=== PATIENT | female | born 1950 | race Caucasian/White ===

== ENCOUNTER 2018-07-28 02:54 | Emergency (ER) | payer OTHER ==
[2018-07-28 05:20] LABS: Absolute Lymphocytes (CBC) 1.2 K/uL (0.7-4.9); Absolute Monocytes 0.4 K/uL (0.1-1.3); Absolute Neutrophil 3.6 K/uL (1.8-8.0); Basophils % 0.6 % (0-1.3); Eosinophils % 5.3 % (0-4.4); Hematocrit 37.8 % (36.0-45.0); Lymphocytes % 21.2 % (15.3-44.8); MPV 9.3 fL (7.6-11.3); Monocytes % 7.6 % (3.3-12.3); RBC Red Blood Cell Count 4.14 M/uL (3.86-4.86)
[2018-07-28 05:34] LABS: Albumin 3.4 g/dL (3.4-5.0); Bilirubin Direct 0.1 mg/dL (0-0.2); Bilirubin Total 0.3 mg/dL (0.2-1.0); Magnesium 2.1 mg/dL (1.8-2.4); Potassium 4.1 mmol/L (3.5-5.1); Protein, Total 6.8 g/dL (6.4-8.2); Troponin (Emerg Dept Use Only) 0.09 ng/mL (0.0-0.045)
[2018-07-28] MEDS ORDERED: PANTOPRAZOLE 40MG TABLET PO ONE (06:52)
--- NOTE | 2018-07-28 07:30 | ER ---
Nurse's Notes [facility] Name: Zuyl Hill Age: 67 yrs Sex: Female : 1950 Arrival Date: 07/28/2018 Time: 02:55 Bed 15 Private MD: Diagnosis: Chest pain, unspecified;Elevated troponin Presentation: 07/28 02:50 Presenting complaint: EMS states: Pt reports having epigastric pain that is the same jb4 pain that was felt with a previous heart attack. 02:50 Transition of care: patient was not received from another setting of care. Onset of jb4 symptoms was July 28, 2018. Risk Assessment: Do you want to hurt yourself or someone else? Patient reports no desire to harm self or others. Initial Sepsis Screen: Does the patient meet any 2 criteria? No. Patient's initial sepsis screen is negative. Does the patient have a suspected source of infection? No. Patient's initial sepsis screen is negative. Care prior to arrival: Medication(s) given: ASA, 81 mg, x 4, zofran 4 mg. 02:50 Method Of Arrival: EMS: [facility] jb4 02:50 Acuity: ISIDRA 3 jb4 Triage Assessment: 02:50 General: Appears in no apparent distress. comfortable, Behavior is calm, cooperative, jb4 appropriate for age. Pain: Complains of pain in epigastric area Pain does not radiate. Pain currently is 0 out of 10 on a pain scale. at worst was 6 out of 10 on a pain scale. Quality of pain is described as aching, Pain began suddenly. EENT: No signs and/or symptoms were reported regarding the EENT system. Neuro: Level of Consciousness is awake, alert, obeys commands, Oriented to person, place, time, situation. Cardiovascular: Patient's skin is warm and dry. Respiratory: Airway is patent Respiratory effort is even, unlabored, Respiratory pattern is regular, symmetrical. GI: No signs and/or symptoms were reported involving the gastrointestinal system. : No signs and/or symptoms were reported regarding the genitourinary system. Derm: Skin is intact, Skin is pink, warm \T\ dry. Musculoskeletal: Circulation, motion, and sensation intact. Historical: - Allergies: 02:50 No Known Allergies; jb4 - Home Meds: 02:50 Plavix Oral [Active]; atorvastatin oral oral [Active]; Metoprolol Tartrate Oral jb4 [Active]; Aspirin Oral [Active]; estrogen [Active]; - PMHx: 02:50 Myocardial infarction; jb4 - PSHx: 02:50 Heart stents; jb4 - Immunization history:: Adult Immunizations up to date. - Social history:: Smoking status: Patient/guardian denies using tobacco, Patient uses alcohol, on a daily basis. - Ebola Screening: : No symptoms or risks identified at this time. Screenin:50 Abuse screen: Denies threats or abuse. Nutritional screening: No deficits noted. jb4 Tuberculosis screening: No symptoms or risk factors identified. Fall Risk None identified. Assessment: 02:50 General: see triage assessment.. jb4 04:00 Reassessment: Patient appears in no apparent distress at this time. Patient and/or jb4 family updated on plan of care and expected duration. Pain level reassessed. Patient is alert, oriented x 3, equal unlabored respirations, skin warm/dry/pink. 05:00 Reassessment: Patient appears in no apparent distress at this time. Patient and/or jb4 family updated on plan of care and expected duration. Pain level reassessed. Patient is alert, oriented x 3, equal unlabored respirations, skin warm/dry/pink. 06:30 Reassessment: Patient appears in no apparent distress at this time. Patient and/or jb4 family updated on plan of care and expected duration. Pain level reassessed. Patient is alert, oriented x 3, equal unlabored respirations, skin warm/dry/pink. Dr. Mercedes at the bedside. 07:03 General: Appears in no apparent distress. comfortable, Behavior is calm, cooperative. rb1 Pain: Denies pain. Neuro: Level of Consciousness is awake, alert, obeys commands, Oriented to person, place, time, situation. Cardiovascular: Capillary refill < 3 seconds is brisk in bilateral fingers. Respiratory: Airway is patent Respiratory effort is even, unlabored, Respiratory pattern is regular, symmetrical. GI: No signs and/or symptoms were reported involving the gastrointestinal system. : No signs and/or symptoms were reported regarding the genitourinary system. Derm: Skin is pink, warm \T\ dry. 07:30 Reassessment: Called report to Vesna Soler RN at [facility]. Information from the [facility]AR rb1 was given. All questions asked and answered. 08:00 Reassessment: Patient appears in no apparent distress at this time. No changes from rb1 previously documented assessment. at bedside. Waiting for EMS to transport pt. 08:40 Reassessment: Patient appears in no apparent distress at this time. Patient and/or rb1 family updated on plan of care and expected duration. Pain level reassessed. Patient is alert, oriented x 3, equal unlabored respirations, skin warm/dry/pink. Gave report to EMS. Patient denies pain at this time. Vital Signs: 02:50 BP 125 / 63; Pulse 73; Resp 16; Temp 98.6(O); Pulse Ox 98% on R/A; Weight 65.77 kg (R); jb4 Height 5 ft. 4 in. (162.56 cm) (R); Pain 0/10; 04:35 BP 115 / 56; Pulse 99; Resp 16; Pulse Ox 100% on R/A; ag4 05:00 BP 113 / 60; Pulse 68; Resp 16; Pulse Ox 100% on R/A; jb4 06:15 BP 127 / 76; Pulse 71; Resp 16; Pulse Ox 100% on R/A; jb4 07:00 BP 107 / 46; Pulse 67; Resp 17; Pulse Ox 99% on R/A; Pain 0/10; rb1 08:00 BP 123 / 54; Pulse 71; Resp 16; Pulse Ox 100% on R/A; Pain 0/10; rb1 08:40 BP 120 / 47; Pulse 71; Resp 15; Pulse Ox 100% on R/A; Pain 0/10; rb1 02:50 Body Mass Index 24.89 (65.77 kg, 162.56 cm) jb4 ED Course: 02:50 Arm band placed on left wrist. jb4 02:50 Patient has correct armband on for positive identification. Placed in gown. Bed in low jb4 position. Call light in reach. Side rails up X 1. environmental monitoring technician on. Pulse ox on. NIBP on. 02:55 Patient arrived in ED. al2 02:58 Arvind Zavala MD is Attending Physician. gs 03:00 Esteban Hanson, RN is Primary Nurse. jb4 03:02 Triage completed. jb4 03:29 XRAY Chest (1 view) In Process Unspecified. EDMS 07:00 Report given to LLOYD Yin. jb4 07:30 Attending Physician role handed off by Arvind Zavala MD rn 07:30 Bernardo Ortega MD is Attending Physician. rn 08:44 No provider procedures requiring assistance completed. Patient transferred, IV remains rb1 in place. Administered Medications: 06:47 Drug: ProTONIX 40 mg Route: PO; jb4 07:15 Follow up: Response: No adverse reaction rb1 Outcome: 07:30 ER care complete, transfer ordered by . rn 08:44 Transferred by ground EMS to [facility], Transfer form completed. rb1 08:44 Condition: stable 08:44 Instructed on the need for transfer. 08:45 Patient left the ED. rb1 Signatures: Dispatcher [employer] EDDE Bernardo Ortega MD MD rn Barber, Rebecca, RN RN rb1 Esteban Hanson RN RN jb4 Arvind Zavala MD MD gs Love, Fede Cotter 4
--- NOTE | 2018-07-28 07:31 | EDPHYS ---
Physician Documentation [facility] Name: Zuly Hill Age: 67 yrs Sex: Female : 1950 Arrival Date: 07/28/2018 Time: 02:55 Bed 15 Private MD: ED Physician Bernardo Ortega HPI: 07/28 06:15 This 67 yrs old Female presents to ER via EMS with complaints of chest pain, gs epigastric . 06:15 The patient or guardian reports chest pain that is located primarily in the epigastric gs area. Onset: acutely. Associated signs and symptoms: Pertinent positives: diaphoresis, shortness of breath. The chest pain is described as a heaviness. Duration: The patient or guardian reports a single episode, that is now resolved. Modifying factors: The symptoms are alleviated by nothing. the symptoms are aggravated by nothing. Severity of pain: At its worst the pain was severe in the emergency department the pain has resolved. The patient has experienced a previous episode, and the symptoms today are exactly the same, mi. Historical: - Allergies: 02:50 No Known Allergies; jb4 - Home Meds: 02:50 Plavix Oral [Active]; atorvastatin oral oral [Active]; Metoprolol Tartrate Oral jb4 [Active]; Aspirin Oral [Active]; estrogen [Active]; - PMHx: 02:50 Myocardial infarction; jb4 - PSHx: 02:50 Heart stents; jb4 - Immunization history:: Adult Immunizations up to date. - Social history:: Smoking status: Patient/guardian denies using tobacco, Patient uses alcohol, on a daily basis. - Ebola Screening: : No symptoms or risks identified at this time. ROS: 06:15 All other systems are negative. gs Exam: 06:15 Head/Face: Normocephalic, atraumatic. Eyes: Pupils equal round and reactive to light, gs extra-ocular motions intact. Lids and lashes normal. Conjunctiva and sclera are non-icteric and not injected. Cornea within normal limits. Periorbital areas with no swelling, redness, or edema. ENT: Nares patent. No nasal discharge, no septal abnormalities noted. Tympanic membranes are normal and external auditory canals are clear. Oropharynx with no redness, swelling, or masses, exudates, or evidence of obstruction, uvula midline. Mucous membranes moist. Neck: Trachea midline, no thyromegaly or masses palpated, and no cervical lymphadenopathy. Supple, full range of motion without nuchal rigidity, or vertebral point tenderness. No Meningismus. Chest/axilla: Normal chest wall appearance and motion. Nontender with no deformity. No lesions are appreciated. Cardiovascular: Regular rate and rhythm with a normal S1 and S2. No gallops, murmurs, or rubs. Normal PMI, no JVD. No pulse deficits. Respiratory: Lungs have equal breath sounds bilaterally, clear to auscultation and percussion. No rales, rhonchi or wheezes noted. No increased work of breathing, no retractions or nasal flaring. Abdomen/GI: Soft, non-tender, with normal bowel sounds. No distension or tympany. No guarding or rebound. No evidence of tenderness throughout. Back: No spinal tenderness. No costovertebral tenderness. Full range of motion. Skin: Warm, dry with normal turgor. Normal color with no rashes, no lesions, and no evidence of cellulitis. MS/ Extremity: Pulses equal, no cyanosis. Neurovascular intact. Full, normal range of motion. Neuro: Awake and alert, GCS 15, oriented to person, place, time, and situation. Cranial nerves II-XII grossly intact. Motor strength 5/5 in all extremities. Sensory grossly intact. Cerebellar exam normal. Normal gait. 06:15 Constitutional: The patient appears alert, awake, diaphoretic. 06:15 ECG was reviewed by the Attending Physician. Vital Signs: 02:50 BP 125 / 63; Pulse 73; Resp 16; Temp 98.6(O); Pulse Ox 98% on R/A; Weight 65.77 kg (R); jb4 Height 5 ft. 4 in. (162.56 cm) (R); Pain 0/10; 04:35 BP 115 / 56; Pulse 99; Resp 16; Pulse Ox 100% on R/A; ag4 05:00 BP 113 / 60; Pulse 68; Resp 16; Pulse Ox 100% on R/A; jb4 06:15 BP 127 / 76; Pulse 71; Resp 16; Pulse Ox 100% on R/A; jb4 07:00 BP 107 / 46; Pulse 67; Resp 17; Pulse Ox 99% on R/A; Pain 0/10; rb1 08:00 BP 123 / 54; Pulse 71; Resp 16; Pulse Ox 100% on R/A; Pain 0/10; rb1 08:40 BP 120 / 47; Pulse 71; Resp 15; Pulse Ox 100% on R/A; Pain 0/10; rb1 02:50 Body Mass Index 24.89 (65.77 kg, 162.56 cm) jb4 MDM: 03:32 Patient medically screened. 06:36 Differential diagnosis: abnormal EKG, acute myocardial infarction, gastroesophageal gs reflux disease (GERD). Data reviewed: vital signs, nurses notes. 07:21 Transition of care: Care assumed from Arvind Zavala MD. ED course: Patient signed out rn to me by Dr. Zavala. Plan told to me was that patient with chest pain, initial troponin elevated, he consulted Dr. Guo who believes due to stent pain, Dr. Guo discussed case with Dr. Zavala and recommended discharge home and not transfer. Dr. Zavala ordered repeat troponin, told me plan is to pursue transfer if troponin comes back higher. Patient does not want to be transferred. Plan per Dr. Zavala is to dc home if troponin same or decreasing. . 07:29 ED course: Troponin increasing, spoke with patient and family, will transfer. . rn 07/28 03:08 Order name: Basic Metabolic Panel; Complete Time: 07:20 07/28 03:08 Order name: CBC with Diff; Complete Time: 05:26 07/28 03:08 Order name: LFT's; Complete Time: 07:20 07/28 03:08 Order name: Magnesium; Complete Time: 07:20 07/28 03:08 Order name: NT PRO-BNP; Complete Time: 07:20 07/28 03:08 Order name: Troponin (emerg Dept Use Only); Complete Time: 07:20 07/28 03:08 Order name: XRAY Chest (1 view) 07/28 03:08 Order name: EKG; Complete Time: 03:08 07/28 03:08 Order name: Cardiac monitoring; Complete Time: 03:23 07/28 06:21 Order name: Lipase; Complete Time: 07:20 EDMS 07/28 06:39 Order name: Troponin (emerg Dept Use Only); Complete Time: 07:23 07/28 03:08 Order name: EKG - Nurse/Tech; Complete Time: 03: 07/28 03:08 Order name: IV Saline Lock; Complete Time: : 07/28 03:08 Order name: Labs collected and sent; Complete Time: 07/28 03:08 Order name: O2 Per Protocol; Complete Time: 07/28 03:08 Order name: O2 Sat Monitoring; Complete Time: 03:23 gs EC:41 Rate is 66 beats/min. Rhythm is regular. RI interval is normal. QRS interval is normal. QT interval is normal. T waves are Inverted in leads V3, V4, V5. Clinical impression: NSR w/ Non-specific ST/T Changes. Interpreted by me. Administered Medications: 06:47 Drug: ProTONIX 40 mg Route: PO; jb4 07:15 Follow up: Response: No adverse reaction rb1 Disposition: 07/28/18 07:30 Transfer ordered to [facility]. Diagnosis are Chest pain, unspecified, Elevated troponin. - Reason for transfer: Higher level of care. - Accepting physician is Dr. Howard. - Condition is Stable. - Problem is new. - Symptoms are unchanged. Signatures: Dispatcher [employer] [facility] Bernardo Ortega MD MD rn Barber, Rebecca RN RN rb1 Esteban Hanson RN RN jb4 Arvind Zavala MD MD Corrections: (The following items were deleted from the chart) 06:20 06:15 LIPASE+C.LAB.BRZ ordered. [facility] EDGA 08:45 07:30 07/28/2018 07:30 Transfer ordered to [facility]. Diagnosis is rb1 Chest pain, unspecified; Elevated troponin. Reason for transfer: Higher level of care. Accepting physician is Dr. Howard. Condition is Stable. Problem is new. Symptoms are unchanged. rn
--- NOTE | 2018-07-28 10:57 | RAD REPORT ---
EXAM DESCRIPTION: [facility] Single View07/28/2018 3:29 am CLINICAL HISTORY: Chest pain COMPARISON: none FINDINGS: The lungs appear clear of acute infiltrate. The heart is normal size IMPRESSION: No acute abnormalities displayed
--- NOTE | 2018-07-29 07:58 | EKG ---
Test Date: 2018-07-28 Test Time: 02:59:13 Grinder Machine Setter: RR MEASUREMENT RESULTS: Intervals: Rate: 66 WA: 150 QRSD: 80 QT: 390 QTc: 408 [place]: P: 85 WA: 150 QRS: 79 T: 82 INTERPRETIVE STATEMENTS: Normal sinus rhythm T wave abnormality, consider anterolateral ischemia Abnormal ECG No previous ECG available for comparison Electronically Signed On 07-29-18 07:54:34 RN CALL CENTER by Jeffrey Guo
== END 2018-07-28 08:45 | disposition short-term general hospital (02) ==
LOC: ER 02:54
DX: R79.89 Other specified abnormal findings of blood chemistry (principal); I25.2 Old myocardial infarction; Z79.01 Long term (current) use of anticoagulants; Z79.82 Long term (current) use of aspirin; Z95.818 Presence of other cardiac implants and grafts
CPT/HCPCS: 71045; 80048; 80076; 83690; 83735; 83880; 84484; 85025; 93005; 99285

== ENCOUNTER 2018-08-22 21:24 | Observation (INO) | payer OTHER ==
--- OUTSIDE RECORDS SUMMARY | 2018-08-22 21:26 | XMS REPORT ---
:1950 Author Organization [employer] Care Team Providers Name Role Phone Hubert Stark Provider Role Unavailable Allergies No Known Allergies Problems Problem Type Condition Code Onset Dates Condition Status Problem Hypertrophy of nasal turbinates J34.3 Active Problem Sneezing R06.7 Active Problem Sinusitis - Chronic J32.9 Active Problem Chronic maxillary sinusitis J32.0 Active Problem Sinusitis - ACUTE >10 days J01.90 Active Problem Edema of larynx J38.4 Active Problem Allergic rhinitis due to pollen J30.1 Active Problem Hypersensitivity pneumonitis due to J67.8 Active other organic dusts Problem Chronic rhinitis J31.0 Active Problem Nasal Airway Obstruction R0 Active Problem Cough R05 Active Problem Allergic rhinitis J30.9 Active Problem Deviated nasal septum J34.2 Active Problem Other specified diseases of jaws M27.8 Active Problem Sinusitis - Chronic J32.8 Active Medications Medication Code Code Instructions Start End Status Dosage System Date Date Azelastine HCl [facility] [id number] MCG/SPRAY Aug 14, Active 1 puff in Nasally Twice a 2018 each day nostril Results No Known Results Summary Purpose [employer] Submission
--- OUTSIDE RECORDS SUMMARY | 2018-08-22 21:26 | XMS REPORT ---
[...] Problem Sinusitis - Chronic J32.8 Active Medications No Known Medications Results No Known Results Summary Purpose [employer] Submission
--- OUTSIDE RECORDS SUMMARY | 2018-08-22 21:26 | XMS REPORT ---
[...] Medications Results No Known Results Summary Purpose [employer] Submission
--- OUTSIDE RECORDS SUMMARY | 2018-08-22 21:26 | XMS REPORT | Clinical Summary ---
:1950 Author Organization [facility] Address [address] [place] [address] Care Team Providers Name Role Phone Unavailable Primary Care Provider Unavailable Allergies Not on File Medications Not on file Active Problems Not on file Encounters Date Type Specialty Care Team Description 09/25/2017 Orders Only Lab Hubert Stark MD Other chronic sinusitis ( Primary Dx) after 08/21/2017 Social History Tobacco Use Types Packs/Day Years Used Date Never Assessed Sex Assigned at Date Recorded Not on file Job Start Date Occupation Industry Not on file Not on file Not on file Travel History Travel Start Travel End No recent travel history available. Last Filed Vital Signs Not on file Plan of Treatment Not on file Procedures Procedure Name Priority Date/Time Associated Diagnosis Comments SINUS CULTURE + Routine 09/25/2017 3:35 PM Other chronic Results for this GRAM STAIN CDT sinusitis procedure are in the results section. after 08/21/2017 Results Sinus Culture + Gram Stain (09/25/2017 3:35 PM CDT) Result PSEUDOMONAS AERUGINOSA (A) [facility] Gram Stain Result <1+ White blood cells seen [facility] Gram Stain Result No organisms seen [facility] Specimen Other Organism Antibiotic Method Susceptibility Pseudomonas aeruginosa Amikacin <=8: Susceptible Pseudomonas aeruginosa Aztreonam 8: Susceptible Pseudomonas aeruginosa Cefepime <=4: Susceptible Pseudomonas aeruginosa Ceftazidime 2: Susceptible Pseudomonas aeruginosa Ciprofloxacin <=0.5: Susceptible Pseudomonas aeruginosa Doripenem 2: Susceptible Pseudomonas aeruginosa Gentamicin <=2: Susceptible Pseudomonas aeruginosa Imipenem 8: Resistant Pseudomonas aeruginosa Levofloxacin <=1: Susceptible Pseudomonas aeruginosa Meropenem 4: Resistant Pseudomonas aeruginosa Piperacillin <=16: Susceptible Pseudomonas aeruginosa Piperacillin + Tazobactam <=8: Susceptible Pseudomonas aeruginosa Tobramycin <=2: Susceptible Performing Organization Address City/State/[facility] Phone Number [facility] [address] [place] [address] CENTER after 08/21/2017 Insurance Payer Benefit Plan / Group Subscriber ID Type Phone Address MEDICARE MEDICARE A B xxxxxxxxxx Medicare (Home) [place] [address]
--- OUTSIDE RECORDS SUMMARY | 2018-08-22 21:26 | XMS REPORT | Clinical Summary ---
:1950 Author Organization [facility] Address [address] [place] [address] Care Team Providers Name Role Phone Sherry Jo MD Primary Care Provider Allergies Active Allergy Reactions Severity Noted Date Comments Penicillins Shortness Of Breath High 05/31/2017 SOB Soy Other (See Comments) Low 07/28/2018 unknown Medications Medication Sig Dispensed Refills Start Date End Date Status estrogens, conjugated, Take 0.3 mg by 0 Active (PREMARIN) 0.3 MG mouth daily. tablet Take daily for 21 days then do not take for 7 days. progesterone Take 100 mg by 0 Active (PROMETRIUM) 100 MG mouth daily. capsule Take 1 tab, first 10 days of the the month metoprolol succinate XL Take 12.5 mg by 0 Active (TOPROL-XL) 25 mg 24 hr mouth daily. tablet atorvastatin (LIPITOR) Take 40 mg by 0 Active 40 MG tablet mouth nightly. clopidogrel (PLAVIX) 75 Take 75 mg by 0 Active mg tablet mouth daily. cholecalciferol, Take 1,000 0 Active vitamin D3, (VITAMIN Units by mouth D3) 1,000 unit capsule daily. cyanocobalamin (VITAMIN Take 1,000 mcg 0 Active B-12) 1000 MCG tablet by mouth daily. acetaminophen (TYLENOL) Take 325 mg by 0 Active 325 MG tablet mouth every 6 (six) hours as needed for fever. aspirin 325 MG tablet Take 325 mg by 0 Active mouth daily. Patient unsure of ASA dosing ALPRAZolam (XANAX) 0.25 Take 0.25 mg by 0 Active MG tablet mouth nightly as needed for anxiety (patient takes 1/2). nitroglycerin Place 1 tablet 90 tablet 12 07/29/2018 08/28/2018 Active (NITROSTAT) 0.4 MG SL (0.4 mg total) tablet under the tongue every 5 (five) minutes as needed for chest pain for up to 30 days. Active Problems Problem Noted Date Chest pain 07/28/2018 Encounters Date Type Specialty Care Team Description 07/29/2018 Surgery Procedural Darnell Tariq Selective coronary Cardiology MD [place] angiography [86286 (CPT)] 07/28/2018 - Hospital Encounter Cardiology Darnell Tariq Other chest pain 07/29/2018 MD [place] (Primary Dx) Caroline Cagle MD 07/28/2018 Intake Access N/A after 08/21/2017 Family History Medical History Relation Name Comments Cancer Father Coronary artery disease Maternal Grandfather Relation Name Status Comments Father Maternal Grandfather Mother essential tremors Social History Tobacco Use Types Packs/Day Years Used Date Never Smoker Smokeless Tobacco: Never Used Alcohol Use Drinks/Week oz/Week Comments Yes 1 Glasses of wine 0.6 glass of wine every day Sex Assigned at Date Recorded Not on file Job Start Date Occupation Industry Not on file Not on file Not on file Travel History Travel Start Travel End No recent travel history available. Last Filed Vital Signs Vital Sign Reading Time Taken Blood Pressure 120/59 07/29/2018 12:01 PM [employer] Pulse 63 07/29/2018 12:01 PM [employer] Temperature 36.1 C (96.9 F) 07/29/2018 9:19 AM [employer]ENTIST Respiratory Rate 12 07/29/2018 12:01 PM [employer]IST Oxygen Saturation 97% 07/29/2018 12:01 PM [employer]IST Inhaled Oxygen Concentration - - Weight 64.7 kg (142 lb 9.6 oz) 07/28/2018 10:17 AM [employer]IST Height 162.6 cm (5' 4") 07/28/2018 10:17 AM [employer]AL[employer] SCIENTIST Body Mass Index 24.48 07/28/2018 10:17 AM [employer]AL[employer] CONTROL SCIENTIST Plan of Treatment Health Maintenance Due Date Last Done Comments BREAST CANCER SCREENING 2000 COLON CANCER SCREENING 2000 SHINGLES VACCINES (#1) 2000 65+ PNEUMOCOCCAL VACCINE (1 of 2 - PCV13) 12/07/2015 PNEUMOCOCCAL POLYSACCHARIDE VACCINE AGE 65 AND OVER 12/07/2015 INFLUENZA VACCINE 01/30/2018 Procedures Procedure Name Priority Date/Time Associated Comments Diagnosis ECHOCARDIOGRAM 2D Routine 07/29/2018 3:02 Results for this COMPLETE W MMODE PM [employer]IST procedure are in SPECTRAL COLOR DOPPLER the results (61238) section. CV LEFT HEART CATH Routine 07/29/2018 10:11 Results for this AM [employer]IST procedure are in the results section. CV SELECTIVE CORONARY Routine 07/29/2018 10:11 Results for this ANGIOGRAPHY AM [employer]IST procedure are in the results section. ESTIMATED GFR Routine 07/29/2018 3:28 Results for this AM [employer]IST procedure are in the results section. BASIC METABOLIC PANEL Routine 07/29/2018 3:28 Results for this AM [employer] procedure are in the results section. CBC HEMOGRAM Routine 07/29/2018 2:40 Results for this AM [employer] procedure are in the results section. TROPONIN Timed 07/28/2018 4:27 Results for this PM [employer]IST procedure are in the results section. B NATRIURETIC PEPTIDE STAT 07/28/2018 11:44 Results for this AM [employer]IST procedure are in the results section. HC COMPLETE BLD COUNT STAT 07/28/2018 11:44 Results for this W/AUTO DIFF AM [employer]ENTIST procedure are in the results section. ECG 12-LEAD STAT 07/28/2018 10:58 Results for this AM [employer]IST procedure are in the results section. TROPONIN STAT 07/28/2018 10:43 Results for this AM [employer] SCIENTIST procedure are in the results section. ESTIMATED GFR Routine 07/28/2018 10:41 Results for this AM [employer]IST procedure are in the results section. PHOSPHORUS LEVEL Routine 07/28/2018 10:41 Results for this AM [employer] procedure are in the results section. MAGNESIUM LEVEL Routine 07/28/2018 10:41 Results for this AM [employer]IST procedure are in the results section. COMPREHENSIVE METABOLIC Routine 07/28/2018 10:41 Results for this PANEL AM [employer]OL SCIENTIST procedure are in the results section. after 08/21/2017 Results Echocardiogram complete w contrast and 3D if needed (07/29/2018 3:02 PM QUALITY CONTROL SCIENTIST) Narrative Performed At [facility] Echocardiography Report [id number]Name:ZULY SANDOVAL Faviola.ID:[id number] .Date: 07/29/2018 Refer.MD:DARNELL TARIQ MD Exam Time: 2:21:00 PMStudy Type:Routine Echo Height:64inWeight: 142lb BSA: 1.69 m2 DOBAge:1950,67Y Sex: FEMALEBP:120/59 HR:63 bpmSonogrphr: Linda Sim, KARIN Pat. Stat.:Inpatient Room:[facility] Study Status:Final Echo Event ID:[id number] Order ID:[id number] Reason for Study:Chest Pain Procedures:2D Echo, Colorflow Doppler Race:C SUMMARY: LV size is normal. Estimated EF is 60-64%. Overall wall motion is normal. LV filling pressure is normal. FINDINGS: LV: LV size is normal. LV EF is normal. Overall wall motion is normal.Estimated EF is 60-64%. RV: RV size is normal. RV systolic function is normal. LA: LA size is normal. RA: RA size is normal. AO: Aortic root diameter is normal. CARLA: No pericardial effusion. AV: No structural AV abnormalities noted. MV: No structural MV abnormalities noted. PV: Pulmonic valve not well seen. TV: No structural TV abnormalities noted. Mild tricuspid regurgitation Mendez: LV relaxation is reduced, appropriate for age. LV filling pressureis normal. Other:Insufficient TR jet to estimate PA systolic pressure. MEASUREMENTS: 2D Parasternal [place] LVIDd4.3 cmIndex2.5 cm/m Ao An2 cm LVIDs2.3 cmAo Rtd 2.6 cm Index1.5 cm/m LV%fs 46.5 % LV Mass 72.9 g(87-129) IVSd 0.6 cmLVM Index 43.1 g/m2 LVPWd0.6 cmRWT0.3 LA Ds2.3 cmLVOT 1.9 cm LA Sng Plane LA Area 16.2 cm2(8.8-23.4) LA Vol42.6 ml Index25.2 ml/m LA LngAx 5.2 cm Signed 07/29/2018 06:32 PM Eugene Marino M.D. Procedure Note Interface, Radiology Results In - 07/29/2018 6:32 PM [facility] Echocardiography Report [id number] [place] [address] Pat.Name: ZULY SANDOVAL Pat.ID: [id number] .Date: 07/29/2018 Refer.MD: DARNELL TARIQ MD Exam Time: 2:21:00 PM Study Type:Routine Echo Height: 64in Weight: 142lb BSA: 1.69 m2 Age: 6 1950,67Y Sex: FEMALE BP: 120/59 HR: 63 bpm Sonogrphr: KARIN Hinds Pat. Stat.:Inpatient Room: [facility] Study Status:Final Echo Event ID:[id number] Order ID: [id number] Reason for Study:Chest Pain Procedures:2D Echo, Colorflow Doppler Race: C SUMMARY: LV size is normal. Estimated EF is 60-64%. Overall wall motion is normal. LV filling pressure is normal. FINDINGS: LV: LV size is normal. LV EF is normal. Overall wall motion is normal. Estimated EF is 60-64%. RV: RV size is normal. RV systolic function is normal. LA: LA size is normal. RA: RA size is normal. AO: Aortic root diameter is normal. CARLA: No pericardial effusion. AV: No structural AV abnormalities noted. MV: No structural MV abnormalities noted. PV: Pulmonic valve not well seen. TV: No structural TV abnormalities noted. Mild tricuspid regurgitation Mendez: LV relaxation is reduced, appropriate for age. LV filling pressure is normal. Other: Insufficient TR jet to estimate PA systolic pressure. MEASUREMENTS: 2D Parasternal [place] LVIDd 4.3 cm Index 2.5 cm/m Ao An 2 cm LVIDs 2.3 cm Ao Rtd 2.6 cm Index 1.5 cm/m LV%fs 46.5 % LV Mass 72.9 g (87-129) IVSd 0.6 cm LVM Index 43.1 g/m2 LVPWd 0.6 cm RWT 0.3 LA Ds 2.3 cm LVOT 1.9 cm LA Sng Plane LA Area 16.2 cm2 (8.8-23.4) LA Vol 42.6 ml Index 25.2 ml/m LA LngAx 5.2 cm Signed 07/29/2018 06:32 PM Eugene Marino M.D. 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 Estimated GFR 52 (A) mL/min/1.73 m2 [facility] Comment: HOSPITAL CatergoryUnitsInterpretation G1 >=90 Normal or high G2 60-89Mildly decreased [id number] to moderately decreased N2k64-78Ksvbbchock to severely decreased G4 15-29Severely decreased G5 <15Kidney failure The eGFR was calculated using the Chronic Kidney Disease Epidemiology Collaboration (CKD-EPI) equation. Interpretation is based on recommendations of the National Kidney Foundation-Kidney Disease Outcomes Quality Initiative (NKF-KDOQI) published in 2014. Specimen Plasma specimen Performing Organization Address City/[facility] Phone Number [facility] DEPARTMENT OF PATHOLOGY AND [address] [place] [address] Basic metabolic panel (07/29/2018 3:28 AM QUALITY CONTROL SCIENTIST) Sodium 136 135 - 148 mEq/L [facility] Potassium 4.1 3.5 - 5.0 mEq/L [facility] Chloride 101 98 - 112 mEq/L [facility] CO2 26 24 - 31 mEq/L [facility] Anion gap 9@ANIO 7 - 15 mEq/L [facility] BUN 16 8 - 23 mg/dL [facility] Creatinine 1.10 (H) 0.50 - 0.90 mg/dL [facility] Glucose 103 (H) 65 - 99 mg/dL [facility] Calcium 9.0 8.8 - 10.2 mg/dL [facility] Specimen Plasma specimen Performing Organization Address City/[facility] Phone Number [facility] DEPARTMENT OF PATHOLOGY AND [address] [place] [phone] [place] [phone] CBC hemogram (07/29/2018 2:40 AM QUALITY CONTROL SCIENTIST) WBC 4.77 4.50 - 11.00 k/uL [facility] RBC 4.00 (L) 4.20 - 5.50 m/uL [facility] HGB 12.1 12.0 - 16.0 g/dL [facility] HCT 36.9 (L) 37.0 - 47.0 % [facility] MCV 92.3 82.0 - 100.0 fL [facility] MCH 30.3 27.0 - 34.0 pg [facility] MCHC 32.8 31.0 - 37.0 g/dL [facility] RDW - SD 42.5 37.0 - 55.0 fL [facility] MPV 10.8 8.8 - 13.2 fL [facility] Platelet count 177 150 - 400 k/uL [facility] Nucleated RBC 0.00 /100 WBC [facility] Specimen Blood Performing Organization Address City/State/Zipcode Phone Number [facility] DEPARTMENT OF PATHOLOGY AND [address] [place] [address] Troponin (07/28/2018 4:27 PM QUALITY CONTROL SCIENTIST)Only the most recent of2 resultswithin the time period is included. Troponin <0.30 0.00 - 0.30 ng/mL [facility] Comment: 0.30 - 1.49 ng/mlMay indicate increased risk of acute coronary syndrome. >=1.5 ng/mlConsistent with acute myocardial infarction. The diagnostic value of a single normal or non-diagnostic result is questionable.Serial samples at 2-6 hour intervals are required to rule out acute myocardial injury. Specimen Plasma specimen Performing Organization Address City/[facility] Phone Number [facility] DEPARTMENT OF PATHOLOGY AND [address] [place] [address] CBC with platelet and differential (07/28/2018 11:44 AM QUALITY CONTROL SCIENTIST) WBC 4.67 4.50 - 11.00 k/uL [facility] RBC 4.17 (L) 4.20 - 5.50 m/uL [facility] HGB 12.8 12.0 - 16.0 g/dL [facility] HCT 39.2 37.0 - 47.0 % [facility] MCV 94.0 82.0 - 100.0 fL [facility] MCH 30.7 27.0 - 34.0 pg [facility] MCHC 32.7 31.0 - 37.0 g/dL [facility] RDW - SD 42.5 37.0 - 55.0 fL [facility] MPV 10.8 8.8 - 13.2 fL [facility] Platelet count 201 150 - 400 k/uL [facility] Nucleated RBC 0.00 /100 WBC [facility] Neutrophils 73.3 (H) 39.0 - 69.0 % [facility] Lymphocytes 20.1 (L) 25.0 - 45.0 % [facility] Monocytes 5.1 0.0 - 10.0 % [facility] Eosinophils 0.9 0.0 - 5.0 % [facility] Basophils 0.4 0.0 - 1.0 % [facility] Immature granulocytes 0.2Comment: "Immature 0.0 - 1.0 % [facility]" [facility] (promyelocytes, myelocytes, metamyelocytes) Specimen Blood Performing Organization Address City/[facility] Phone Number [facility] DEPARTMENT OF PATHOLOGY AND [address] [place] [phone] [place] [phone] B natriuretic peptide (07/28/2018 11:44 AM QUALITY CONTROL SCIENTIST) BNP 109 (H) 0 - 100 pg/mL [facility] Specimen Blood Performing Organization Address [facility] Phone Number [facility] DEPARTMENT OF PATHOLOGY AND [address] [place], [place] [phone] [address] [address] ECG 12 lead (07/28/2018 10:58 AM QUALITY CONTROL SCIENTIST) Ventricular rate 66 [facility] Atrial rate 66 [facility] MI interval 142 [facility] QRSD interval 76 [facility] QT interval 388 [facility] QTC interval 406 [facility] P axis 1 80 [facility] QRS axis 1 62 [facility] T wave axis 58 [facility] EKG impression Normal sinus rhythm-Possible Left atrial [facility] enlargement-T wave abnormality, consider anterolateral ischemia-Abnormal ECG-No previous ECGs available- Narrative Performed At Performing Organization Address City/[facility] Phone Number [facility] [address] [place] [phone] Phosphorus level (07/28/2018 10:41 AM QUALITY CONTROL SCIENTIST) Phosphorus 3.2 2.4 - 4.5 mg/dL [facility] Specimen Plasma specimen Performing Organization Address City/[facility]/Zipcode Phone Number [facility] DEPARTMENT OF PATHOLOGY AND [address] [place] [phone] [address] Magnesium level (07/28/2018 10:41 AM QUALITY CONTROL SCIENTIST) Magnesium 2.1 1.6 - 2.4 mg/dL [facility] Specimen Plasma specimen Performing Organization Address [facility] Phone Number [facility] DEPARTMENT OF PATHOLOGY AND [address] [place] [phone] [address] Comprehensive metabolic panel (07/28/2018 10:41 AM QUALITY CONTROL SCIENTIST) Sodium 144 135 - 148 mEq/L [facility] Potassium 4.8 3.5 - 5.0 mEq/L [facility] Chloride 105 98 - 112 mEq/L [facility] CO2 26 24 - 31 mEq/L [facility] Anion gap 13@ANIO 7 - 15 mEq/L [facility] BUN 16 8 - 23 mg/dL [facility] Creatinine 1.07 (H) 0.50 - 0.90 mg/dL [facility] Glucose 114 (H) 65 - 99 mg/dL [facility] Calcium 9.4 8.8 - 10.2 mg/dL [facility] Protein 6.8 6.3 - 8.3 g/dL [facility] Comment: HOSPITAL 4.6-7.0 g/dL 1 week 4.4-7.6 g/dL 7 months-1year5.1-7.3 g/dL 1-2 years5.6-7.5 g/dL >3 years6.0-8.0 g/dL 18-150 6.3-8.3 g/dL Albumin 3.8 3.5 - 5.0 g/dL [facility] A/G ratio 1.3 0.7 - 3.8 [facility] Alkaline phosphatase 66 35 - 104 U/L [facility] AST 33 10 - 35 U/L [facility] ALT 37 5 - 50 U/L [facility] Total bilirubin 0.4 0.0 - 1.2 mg/dL [facility] Specimen Plasma specimen Performing Organization Address [facility] Phone Number [facility] DEPARTMENT OF PATHOLOGY AND [address] [place] [address] [place] [address] after 08/21/2017 Insurance Payer Benefit Plan / Group Subscriber ID Type Phone Address MEDICARE MEDICARE PART A AND B xxxxxxxxxx Medicare [place], [place] [employer] [place] [employer] xxxxxxxxxxxx Commercial Advance Directives Patient has advance care planning documents on file. For more information, please contact:[address] [address]
--- OUTSIDE RECORDS SUMMARY | 2018-08-22 21:27 | XMS REPORT ---
:1950 Author Organization [employer] Care Team Providers Name Role Phone Hubert Stark Provider Role Unavailable Allergies, Adverse Reactions, Alerts Substance Reaction Event Type Penicillin Info Not Available Drug Allergy Problems Problem Type Condition Code Onset Dates [...] Active Problem Nasal Airway Obstruction R0 Active Assessment Sinusitis - Chronic J32.8 Active Assessment Chronic maxillary sinusitis J32.0 Active Problem Cough R05 Active Problem Allergic rhinitis J30.9 Active Assessment Allergic rhinitis J30.9 Active Problem Deviated nasal septum J34.2 Active Problem Other specified diseases of jaws M27.8 Active Problem Sinusitis - Chronic J32.8 Active Medications Medication Code Code Instructions Start End Status Dosage System Date Date Medrol (Isidoro) [facility] 07933293778 4 MG Orally Mar 27, Active as 2017 directed Mucinex [facility] [address]-11 Active not defined Astelin [facility] 33680400395 137 MCG/SPRAY Jun 21 Active 1 spray in Nasally Twice a 2015 each day nostril Biaxin XL [facility] 25862338984 500 MG Orally August Active 1 tablet Twice a day 2017 Simply Saline [facility] [address] Active not defined Progesterone [facility] [address]-74 Active not defined Benadryl ND 0 Active not defined Zantac [facility] [address]-64 Active not defined EpiPen 2-Isidoro [facility] 27939386692 0.3 MG/0.3ML August Active as Injection as 2017 directed needed Mariela [facility] 0 Active not defined Ventolin HFA [facility] [address]-26 Active 2 puffs as needed Fluticasone ND 56364850919 50 MCG/ACT May 30, Active 1 spray in Propionate Nasally Twice a 2016 each day nostril Azelastine HCl [facility] 29366179539 137 MCG/SPRAY Aug 14, Active 1 puff in Nasally Twice a 2017 each day nostril Symbicort [facility] [address]-05 Active 2 puffs as needed Gentamicin NDC 0 Active not defined Diflucan [facility] 55508999410 150 MG Orally AugustNovember 20, Active 2 tablets Once a week 2017 Unknown NDC 0 Active not defined Flonase [facility] 52636575354 50 MCG/ACT Jun 21, Active 1 spray in Nasally Twice a 2015 each day nostril Medrol (Isidoro) [facility] 82470813439 4 MG Orally August Active as 2017 directed Premarin [facility] [address]-93 Active not defined Results No Known Results Summary Purpose [employer] Submission
--- OUTSIDE RECORDS SUMMARY | 2018-08-22 21:27 | XMS REPORT ---
:1950 Author Organization [employer] Care Team Providers Name Role Phone Hubert Stark Provider Role Unavailable Allergies No Known Allergies Problems Problem Type Condition Code Onset Dates Condition Status Problem Hypersensitivity pneumonitis due to J67.8 Active other organic dusts Problem Nasal Airway Obstruction R0 Active Problem Allergic rhinitis due to pollen J30.1 Active Problem Postnasal drip R09.82 Active Assessment Allergic rhinitis J30.89 Active Problem Polyp of nasal cavity J33.0 Active Problem Nasal airway obstruction J34.89 Active Problem Sinusitis - ACUTE >10 days J01.90 Active Problem Chronic rhinitis J31.0 Active Problem Edema of larynx J38.4 Active Problem Chronic maxillary sinusitis J32.0 Active Problem Other specified diseases of jaws M27.8 Active Problem Cough R05 Active Assessment Allergic rhinitis due to animal J30.81 Active (cat) (dog) hair and dander Assessment Allergic rhinitis due to pollen J30.1 Active Problem Sinusitis - Chronic J32.8 Active Problem Hypertrophy of nasal turbinates J34.3 Active Problem Allergic rhinitis J30.9 Active Problem Sinusitis - Chronic J32.9 Active Problem Deviated nasal septum J34.2 Active Problem Sneezing R06.7 Active Medications No Known Medications Results No Known Results Summary Purpose [employer] Submission
--- OUTSIDE RECORDS SUMMARY | 2018-08-22 21:27 | XMS REPORT ---
:1950 Author Organization e[employer]Works Care Team Providers Name Role Phone Hubert Stark Provider Role Unavailable Allergies, Adverse Reactions, Alerts Substance Reaction Event Type Cipro Difficulty breathing Drug Allergy Penicillin Info Not Available Drug Allergy Problems Problem Type Condition Code Onset Dates Condition Status Problem Hypersensitivity pneumonitis due to J67.8 Active other organic dusts Problem Nasal Airway Obstruction R0 Active Problem Allergic rhinitis due to pollen J30.1 Active Problem Postnasal drip R09.82 Active Assessment Allergic rhinitis J30.9 Active Problem Polyp of nasal cavity J33.0 Active Assessment Postnasal drip R09.82 Active Assessment Chronic maxillary sinusitis J32.0 Active Problem Nasal airway obstruction J34.89 Active Problem Sinusitis - ACUTE >10 days J01.90 Active Problem Chronic rhinitis J31.0 Active Problem Edema of larynx J38.4 Active Problem Chronic maxillary sinusitis J32.0 Active Problem Other specified diseases of jaws M27.8 Active Problem Cough R05 Active Assessment Nasal airway obstruction J34.89 Active Assessment Sinusitis - Chronic J32.8 Active Problem Sinusitis - Chronic J32.8 Active Problem Hypertrophy of nasal turbinates J34.3 Active Problem Allergic rhinitis J30.9 Active Problem Sinusitis - Chronic J32.9 Active Assessment Polyp of nasal cavity J33.0 Active Problem Deviated nasal septum J34.2 Active Problem Sneezing R06.7 Active Medications Medication Code Code Instructions Start End Status Dosage System Date Date Medrol (Isidoro) [facility] 96054048271 4 MG Orally August Active as 2017 directed Biaxin XL ND 19757102160 500 MG Orally November 15October Active 1 tablet Once a day BID 2017 Auvi-Q ND 07026443398 0.3 MG/0.3ML August Active as Injection as 2017 directed needed Premarin [facility] [address]-75 Active not defined Fluticasone ND 52501763402 50 MCG/ACT May 30, Active 1 spray in Propionate Nasally Twice a 2017 each day nostril Benadryl ND 0 Active not defined Simply Saline [facility] [address] Active not defined Diflucan ND 65258775677 150 MG Orally August Active 2 tablets Once a week 2017 Medrol (Isidoro) [facility] 99336187028 4 MG Orally November 15, Active as 2018 directed Xyzal [facility] [address]-26 Active not defined Ciprofloxacin ND 57388542959 750 MG Orally August Active 1 tablet HCl twice a day 2017 Symbicort [facility] [address]-32 Active 2 puffs as needed Gentamicin NDC 0 Active not defined Mariela NDC 0 Active not defined Unknown NDC 0 Active not defined Zithromax Z-Isidoro [facility] 17976244990 250 MG Orally November 15, Active 2 tablets Once a day 2017 on the first day, then 1 tablet daily for 4 days EpiPen 2-Isidoro [facility] 92687609353 0.3 MG/0.3ML August Active as Injection as 2017 directed needed Zantac [facility] [address]-54 Active not defined Mucinex [facility] [address]-88 Active not defined Progesterone [facility] [address]-67 Active not defined Azelastine HCl [facility] 05572406520 137 MCG/SPRAY Aug 14, Active 1 puff in Nasally Twice a 2018 each day nostril Ventolin HFA [facility] [address]-17 Active 2 puffs as needed Results No Known Results Summary Purpose eClinicalWorks Submission
--- OUTSIDE RECORDS SUMMARY | 2018-08-22 21:27 | XMS REPORT ---
[...] Start End Status Dosage System Date Date Ciprofloxacin HCl [facility] 75028546565 750 MG Orally August Active 1 tablet twice a day 2017 Results No Known Results Summary Purpose eClinicalWorks Submission
--- OUTSIDE RECORDS SUMMARY | 2018-08-22 21:27 | XMS REPORT ---
[...] Medications Medication Code Code Instructions Start End Date Status Dosage System Date Auvi-Q [facility] 19825767768 0.3 MG/0.3ML September 26, Active as directed Injection as 2018 needed Results No Known Results Summary Purpose eClinicalWorks Submission
--- OUTSIDE RECORDS SUMMARY | 2018-08-22 21:27 | XMS REPORT ---
:1950 Author Organization [facility] Address [address] [place] [address] [place] [id number] Care Team Providers Name Role Phone TIM GUERIN Unavailable Unavailable Problems This patient has no known problems. Allergies, Adverse Reactions, Alerts This patient has no known allergies or adverse reactions. Medications This patient has no known medications. Results Test Description Test Time Test Comments Text Results Atomic Results Result Comments SINUS CULTURE + GRAM STAIN 2017-09-27 12:07:00 Test Item Value Reference Range Comments CULTURE (BEAKER) (test PSEUDOMONAS 1+ Pseudomonas lkbh=2348) AERUGINOSA aeruginosa Amikacin (test code=1) Susceptible 0-16 , Resistant <0 or >16 Aztreonam (test Susceptible 0-8 , code=32) Resistant <0 or >8 Cefepime (test code=51) Susceptible 0-8 , Resistant <0 or >8 Ceftazidime (test Susceptible 0-8 , code=27) Resistant <0 or >8 Ciprofloxacin (test Susceptible 0-1 , code=7) Resistant <0 or >1 Doripenem (test Susceptible 0-2 , ouyt=438) Resistant <0 or >2 Gentamicin (test Susceptible 0-4 , code=18) Resistant <0 or >4 Imipenem (test code=19) Susceptible 0-2 , Resistant <0 or >2 Levofloxacin (test Susceptible 0-2 , code=22) Resistant <0 or >2 Meropenem (test Susceptible 0-2 , code=34) Resistant <0 or >2 Piperacillin (test Susceptible 0-16 , code=24) Resistant <0 or >16 Piperacillin + Susceptible 0-16 , Tazobactam (test Resistant <0 or >16 code=29) Tobramycin (test Susceptible 0-4 , code=25) Resistant <0 or >4 GRAM STAIN RESULT <1+ White blood cells (BEAKER) (test seen alzg=0294) GRAM STAIN RESULT No organisms seen (BEAKER) (test cwel=[id number])
--- OUTSIDE RECORDS SUMMARY | 2018-08-22 21:27 | XMS REPORT ---
:1950 Author Organization eClinicalWorks Care Team Providers Name Role Phone Hubert Stark Provider Role Unavailable Allergies, Adverse Reactions, Alerts Substance Reaction Event Type Cipro Difficulty breathing Drug Allergy Penicillin Info Not Available Drug Allergy Problems Problem Type Condition Code Onset Dates Condition Status Problem Sinusitis - Chronic J32.9 Active Problem Hypersensitivity pneumonitis due to J67.8 Active other organic dusts Problem Sneezing R06.7 Active Problem Edema of larynx J38.4 Active Problem Chronic maxillary sinusitis J32.0 Active Problem Polyp of nasal cavity J33.0 Active Problem Nasal Airway Obstruction R0 Active Problem Allergic rhinitis due to pollen J30.1 Active Problem Sinusitis - ACUTE >10 days J01.90 Active Problem Chronic rhinitis J31.0 Active Assessment Allergic rhinitis J30.9 Active Assessment Sinusitis - Chronic J32.8 Active Assessment Polyp of nasal cavity J33.0 Active Assessment Chronic maxillary sinusitis J32.0 Active Problem Allergic rhinitis J30.9 Active Problem Deviated nasal septum J34.2 Active Problem Other specified diseases of jaws M27.8 Active Problem Sinusitis - Chronic J32.8 Active Problem Cough R05 Active Problem Hypertrophy of nasal turbinates J34.3 Active Medications Medication Code Code Instructions Start End Status Dosage System Date Date Premarin [facility] [address]-82 Active not defined Ciprofloxacin [facility] 84195228251 750 MG Orally August Active 1 tablet HCl twice a day 2017 Symbicort [facility] [address]-62 Active 2 puffs as needed Simply Saline [facility] [address] Active not defined Auvi-Q [facility] 94312692786 0.3 MG/0.3ML August Active as Injection as 2017 directed needed Gentamicin ND 0 Active not defined EpiPen 2-Isidoro [facility] 54471718574 0.3 MG/0.3ML August Active as Injection as 2017 directed needed Mucinex [facility] [address]-00 Active not defined Benadryl ND 0 Active not defined Progesterone [facility] [address]-88 Active not defined Unknown NDC 0 Active not defined Diflucan [facility] 15175288361 150 MG Orally August Active 2 tablets Once a week 2017 Medrol (Isidoro) [facility] 48690166429 4 MG Orally August Active as 2017 directed Mariela ND 0 Active not defined Ventolin HFA [facility] [address]-23 Active 2 puffs as needed Azelastine HCl [facility] 63568377216 137 MCG/SPRAY Aug 14, Active 1 puff in Nasally Twice a 2017 each day nostril Fluticasone [facility] 70031491503 50 MCG/ACT May 30, Active 1 spray in Propionate Nasally Twice a 2016 each day nostril Zantac [facility] [address]-33 Active not defined Results No Known Results Summary Purpose eClinicalWorks Submission
--- OUTSIDE RECORDS SUMMARY | 2018-08-22 21:27 | XMS REPORT ---
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
--- OUTSIDE RECORDS SUMMARY | 2018-08-22 21:28 | XMS REPORT ---
[...] Active Problem Postnasal drip R09.82 Active Assessment Other allergic rhinitis J30.89 Active Problem Polyp of nasal [...]
--- OUTSIDE RECORDS SUMMARY | 2018-08-22 21:28 | XMS REPORT ---
[...] J30.1 Active Problem Postnasal drip R09.82 Active Problem Polyp of nasal cavity J33.0 Active Problem Nasal airway obstruction J34.89 Active Problem Sinusitis - ACUTE >10 days J01.90 Active Problem Chronic rhinitis J31.0 Active Problem Edema of larynx J38.4 Active Problem Chronic maxillary sinusitis J32.0 Active Problem Other specified diseases of jaws M27.8 Active Problem Cough R05 Active Problem Sinusitis - Chronic J32.8 Active Problem Hypertrophy of nasal turbinates J34.3 Active Problem Allergic rhinitis J30.9 Active Problem Sinusitis - Chronic J32.9 Active Problem Deviated nasal septum J34.2 Active Problem Sneezing R06.7 Active Medications No Known Medications Results No Known Results Summary Purpose eClinicalWorks Submission
--- OUTSIDE RECORDS SUMMARY | 2018-08-22 21:28 | XMS REPORT ---
:1950 Author Organization eClinicalWorks Care Team Providers Name Role Phone Hubert Stakr Provider Role Unavailable Allergies No Known Allergies [...]
--- OUTSIDE RECORDS SUMMARY | 2018-08-22 21:29 | XMS REPORT ---
[...] Status Dosage System Date Date Azelastine HCl [facility] 63946207285 137 MCG/SPRAY Aug 14, Active 1 puff in Nasally Twice a 2018 each day nostril Results No Known Results Summary Purpose eClinicalWorks Submission
--- OUTSIDE RECORDS SUMMARY | 2018-08-22 21:30 | XMS REPORT ---
:1950 Author Organization eClinicalWorks Care Team Providers Name Role Phone Hubert Stark Provider Role Unavailable Allergies No Known Allergies Problems Problem Type Condition Code Onset Dates Condition Status Problem Allergic rhinitis due to pollen J30.1 Active Problem Chronic rhinitis J31.0 Active Problem Nasal Airway Obstruction R0 Active Problem Nasal airway obstruction J34.89 Active Assessment Allergic rhinitis due to animal J30.81 Active (cat) (dog) hair and dander Problem Postnasal drip R09.82 Active Problem Mild intermittent asthma, J45.20 Active uncomplicated Problem Chronic maxillary sinusitis J32.0 Active Problem Sinusitis - ACUTE >10 days, PCN, no J01.[address] Problem Polyp of nasal cavity J33.0 Active Problem Edema of larynx J38.4 Active Problem Cough R05 Active Problem Allergic rhinitis J30.9 Active Assessment Allergic rhinitis due to pollen J30.1 Active Problem Other specified diseases of jaws M27.8 Active Problem Hypertrophy of nasal turbinates J34.3 Active Problem Sinusitis - Chronic J32.9 Active Problem Deviated nasal septum J34.2 Active Problem Sneezing R06.7 Active Problem Sinusitis - Chronic J32.8 Active Problem Hypersensitivity pneumonitis due to J67.8 Active other organic dusts Medications No Known Medications Results No Known Results Summary Purpose eClinicalWorks Submission
--- OUTSIDE RECORDS SUMMARY | 2018-08-22 21:30 | XMS REPORT ---
:1950 Author Organization eClinicalWorks Care Team Providers Name Role Phone Hubert Stark Provider Role Unavailable Allergies No Known Allergies Problems Problem Type Condition Code Onset Dates Condition Status Problem Sneezing R06.7 Active Problem Chronic rhinitis J31.0 Active Problem Nasal Airway Obstruction R0 Active Problem Postnasal drip R09.82 Active Assessment Allergic rhinitis due to pollen J30.1 Active Problem Nasal airway obstruction J34.89 Active Assessment Allergic rhinitis due to animal J30.81 Active (cat) (dog) hair and dander Assessment Allergic rhinitis J30.89 Active Problem Mild intermittent asthma, J45.20 Active uncomplicated Problem Chronic maxillary sinusitis J32.0 Active Problem Edema of larynx J38.4 Active Problem Polyp of nasal cavity J33.0 Active Problem Sinusitis - ACUTE >10 days, PCN, no J01.[address] Problem Sinusitis - Chronic J32.8 Active Problem Cough R05 Active Problem Other specified diseases of jaws M27.8 Active Problem Sinusitis - Chronic J32.9 Active Problem Hypertrophy of nasal turbinates J34.3 Active Problem Deviated nasal septum J34.2 Active Problem Hypersensitivity pneumonitis due to J67.8 Active other organic dusts Problem Allergic rhinitis J30.9 Active Problem Allergic rhinitis due to pollen J30.1 Active Medications No Known Medications Results No Known Results Summary Purpose eClinicalWorks Submission
--- OUTSIDE RECORDS SUMMARY | 2018-08-22 21:30 | XMS REPORT ---
:1950 [facility] Team Providers Name Role Phone Hubert [...] Active (cat) (dog) hair and dander Assessment Other allergic rhinitis J30.89 Active Problem Mild intermittent asthma, [...] rhinitis due to pollen J30.1 Active Medications Medication Code Code Instructions Start End Status Dosage System Date Date Fluticasone [facility] 91814284486 50 MCG/ACT May 30, Active 1 spray in Propionate Nasally Twice a 2017 each day nostril Simply Saline [facility] [address] Active not defined Ventolin HFA [facility] [address]-78 Active 2 puffs as needed Premarin [facility] [address]-44 Active not defined Progesterone [facility] [address]-08 Active not defined Gentamicin NDC 0 Active not defined Symbicort [facility] [address]-89 Active 2 puffs as needed Xyzal NDC 0 Active not defined Azelastine HCl [facility] 94436908594 137 MCG/SPRAY Feb 13, Active 1 puff in Nasally Twice a 2018 each day nostril Results No Known Results Summary Purpose eClinicalWorks Submission
--- OUTSIDE RECORDS SUMMARY | 2018-08-22 21:30 | XMS REPORT ---
[...] Problem Nasal airway obstruction J34.89 Active Problem Mild intermittent asthma, J45.20 Active [...] End Status Dosage System Date Date Premarin [facility] [address]-33 Active not defined Simply Saline [facility] [address] Active not defined Gentamicin ND 0 Active not defined Fluticasone [facility] 61707885994 50 MCG/ACT May 30, Active 1 spray in Propionate Nasally Twice a 2016 each day nostril Azelastine HCl [facility] 80120420271 137 MCG/SPRAY Aug 14, Active 1 puff in Nasally Twice a 2017 each day nostril Symbicort [facility] [address]-88 Active 2 puffs as needed Ventolin HFA [facility] [address]-30 Active 2 puffs as needed Xyzal NDC 0 Active not defined Progesterone [facility] [address]-67 Active not defined Results No Known Results Summary Purpose eClinicalWorks Submission
--- OUTSIDE RECORDS SUMMARY | 2018-08-22 21:30 | XMS REPORT ---
:1950 Author Organization eClinicalWorks Care Team Providers Name Role Phone Danilo Kunz Provider Role Unavailable Allergies, Adverse Reactions, Alerts Substance Reaction Event Type Cipro Difficulty breathing Drug Allergy Penicillin Info Not Available Drug Allergy Problems Problem Type Condition Code Onset Dates Condition Status Problem Allergic rhinitis due to pollen J30.1 Active Problem Chronic rhinitis J31.0 Active Problem Nasal Airway Obstruction R0 Active Problem Nasal airway obstruction J34.89 Active Assessment Mild intermittent asthma, J45.20 Active uncomplicated Problem Postnasal drip R09.82 Active Problem Mild intermittent asthma, J45.20 Active uncomplicated Problem Chronic maxillary sinusitis J32.0 Active Problem Sinusitis - ACUTE >10 days J01.90 Active Problem Polyp of nasal cavity J33.0 Active Problem Edema of larynx J38.4 Active Problem Cough R05 Active Problem Allergic rhinitis J30.9 Active Assessment Allergic rhinitis J30.9 Active Problem Other specified diseases of jaws M27.8 Active Problem Hypertrophy of nasal turbinates J34.3 Active Problem Sinusitis - Chronic J32.9 Active Problem Deviated nasal septum J34.2 Active Problem Sneezing R06.7 Active Problem Sinusitis - Chronic J32.8 Active Problem Hypersensitivity pneumonitis due to J67.8 Active other organic dusts Medications Medication Code Code Instructions Start End Status Dosage System Date Date Premarin [facility] [address]-92 Active not defined Auvi-Q [facility] 47702133554 0.3 MG/0.3ML August Active as Injection as 2017 directed needed Benadryl NDC 0 Active not defined Zantac [facility] [address]-39 Active not defined Xyzal NDC 0 Active not defined Unknown NDC 0 Active not defined Mucinex [facility] [address]-27 Active not defined Medrol (Isidoro) [facility] 99472505531 4 MG Orally November 15, Active as 2018 directed Ventolin HFA [facility] [address]-31 Active 2 [place] [address]-17 Active 2 puffs as needed Azelastine HCl [facility] 09112754968 137 MCG/SPRAY Aug 14, Active 1 puff in Nasally Twice a 2017 each day nostril Zithromax Z-Isidoro [facility] 62591309857 250 MG Orally November 15, Active 2 tablets Once a day 2018 on the first day, then 1 tablet daily for 4 days Simply Saline [facility] [address] Active not defined Gentamicin ND 0 Active not defined Fluticasone [facility] 94033302187 50 MCG/ACT May 30, Active 1 spray in Propionate Nasally Twice a 2016 each day nostril Progesterone [facility] [address]-45 Active not defined Mariela ND 0 Active not defined Results No Known Results Summary Purpose eClinicalWorks Submission
--- OUTSIDE RECORDS SUMMARY | 2018-08-22 21:30 | XMS REPORT ---
:1950 [facility] Care Team Providers Name Role [...] Start End Status Dosage System Date Date Progesterone [facility] [address]-92 Active not defined Symbicort [facility] [address]-20 Active 2 puffs as needed Simply Saline [facility] [address] Active not defined Azelastine HCl [facility] 31041678489 137 MCG/SPRAY Aug 14, Active 1 puff in Nasally Twice a 2017 each day nostril Fluticasone [facility] 38956526401 50 MCG/ACT May 30, Active 1 spray in Propionate Nasally Twice a 2016 each day nostril Gentamicin NDC 0 Active not defined Xyzal ND 0 Active not defined Ventolin HFA [facility] [address]-65 Active 2 puffs as needed Premarin [facility] [address]-29 Active not defined Results No Known Results Summary Purpose eClinicalWorks Submission
--- OUTSIDE RECORDS SUMMARY | 2018-08-22 21:30 | XMS REPORT ---
:1950 Author Organization eClinicalWorks Care Team Providers Name Role Phone Hubert Stark Provider Role Unavailable Allergies No Known Allergies Problems Problem Type Condition Code Onset Dates Condition Status Problem Sneezing R06.7 Active Problem Chronic rhinitis J31.0 Active Problem Nasal Airway Obstruction R0 Active Problem Postnasal drip R09.82 Active Problem Nasal airway obstruction J34.89 Active [...]
[2018-08-22 22:02] LABS: Absolute Lymphocytes (CBC) 1.1 K/uL (0.7-4.9); Absolute Monocytes 0.3 K/uL (0.1-1.3); Absolute Neutrophil 2.8 K/uL (1.8-8.0); Eosinophils % 5.5 % (0-4.4); Hematocrit 35.6 % (36.0-45.0); Lymphocytes % 23.6 % (15.3-44.8); MPV 9.1 fL (7.6-11.3); Monocytes % 7.6 % (3.3-12.3); RBC Red Blood Cell Count 3.85 M/uL (3.86-4.86)
[2018-08-22 22:04] LABS: Protime INR 1.03
[2018-08-22 22:21] LABS: ALT/SGPT 90 U/L (12-78); AST/SGOT 100 U/L (15-37); Albumin 3.8 g/dL (3.4-5.0); Alkaline Phosphatase 104 U/L (45-117); BUN Blood Urea Nitrogen 21 mg/dL (7-18); Bicarbonate 31 mmol/L (21-32); Bilirubin Direct 0.1 mg/dL (0-0.2); Bilirubin Total 0.3 mg/dL (0.2-1.0); Glucose Level 109 mg/dL (74-106); Magnesium 2.1 mg/dL (1.8-2.4); NT PRO-BNP 386 pg/mL (<125); Protein, Total 6.9 g/dL (6.4-8.2); Sodium Level 142 mmol/L (136-145); Troponin (Emerg Dept Use Only) < 0.02 ng/mL (0.0-0.045)
[2018-08-22] MEDS ORDERED: NA CHLORIDE 0.9% 500 ML ONE (23:53)
--- NOTE | 2018-08-23 00:09 | ER ---
Nurse's Notes [facility] Name: Zuly Hill Age: 67 yrs Sex: Female : 1950 Arrival Date: 08/22/2018 Time: 21:25 Bed 16 Private MD: Diagnosis: Syncope and collapse;Chest pain, unspecified Presentation: 08/22 21:34 Presenting complaint: Patient states: Pt reports chest pain that began this morning, pt ea states "there is a dull ache going to my left arm". Pt husbands reports pt had a heart attack on Jul 18 2018. Transition of care: patient was not received from another setting of care. Onset of symptoms was August 22, 2018. Risk Assessment: Do you want to hurt yourself or someone else? Patient reports no desire to harm self or others. Initial Sepsis Screen: Does the patient meet any 2 criteria? No. Patient's initial sepsis screen is negative. Does the patient have a suspected source of infection? No. Patient's initial sepsis screen is negative. Care prior to arrival: None. 21:34 Method Of Arrival: Wheelchair ea 21:34 Acuity: ISIDRA 3 ea Triage Assessment: 21:42 General: Appears in no apparent distress. Behavior is calm, cooperative. Pain: Denies ls4 pain. Cardiovascular: Reports chest pain, since this morning but the pain has since subsided. pt spouse states that she passed out on tv chair an hour ago. Respiratory: Airway is patent Trachea midline Respiratory effort is even, unlabored, Respiratory pattern is regular. GI: Abdomen is non-distended, Bowel sounds present X 4 quads. Abd is soft and non tender X 4 quads. Historical: - Allergies: 21:38 No Known Allergies; ea - Home Meds: 21:38 Plavix Oral [Active]; Metoprolol Tartrate Oral [Active]; atorvastatin Oral [Active]; ea Aspirin Oral [Active]; - PMHx: 21:38 Myocardial infarction; ea - PSHx: 21:38 Heart stents; ea - Immunization history:: Adult Immunizations up to date. - Social history:: Smoking status: Patient/guardian denies using tobacco. - Ebola Screening: : No symptoms or risks identified at this time. Screenin:45 Abuse screen: Denies threats or abuse. Denies injuries from another. Nutritional ls4 screening: No deficits noted. Tuberculosis screening: No symptoms or risk factors identified. Fall Risk None identified. Assessment: 22:16 Also complains of no other symptoms. Pain: Denies pain. radiated to right arm when pain ls4 occurred earlier Pain began gradually. Cardiovascular: Reports chest pain, fatigue, Denies diaphoresis, lightheadedness, nausea, palpitations, shortness of breath, syncope, vomiting. Respiratory: Airway is patent Trachea midline Respiratory effort is even, unlabored, Breath sounds are clear bilaterally. 23:40 Reassessment: Patient and/or family updated on plan of care and expected duration. Pain ea level reassessed. Patient is alert, oriented x 3, equal unlabored respirations, skin warm/dry/pink. 08/23 00:00 Reassessment: Patient and/or family updated on plan of care and expected duration. Pain ea level reassessed. Patient is alert, oriented x 3, equal unlabored respirations, skin warm/dry/pink. Patient states feeling better. Patient states symptoms have improved. 01:15 Reassessment: Report given to receiving nurse on fourth floor. ea 01:18 Reassessment: Patient and/or family updated on plan of care and expected duration. Pain ea level reassessed. Patient is alert, oriented x 3, equal unlabored respirations, skin warm/dry/pink. Pt admitted to fourth floor, taken via wheelchair per tech, pt tolerating well. Patient states feeling better. Patient states symptoms have improved. Vital Signs: 08/22 21:38 BP 157 / 69; Pulse 75; Resp 18; Temp 97.6(O); Pulse Ox 95% on R/A; Weight 64.41 kg; ea Height 5 ft. 4 in. (162.56 cm); 23:40 BP 100 / 53; Pulse 68; Resp 18; Pulse Ox 98% ; ea 08/23 00:30 BP 119 / 62; Pulse 72; Resp 18; Pulse Ox 97% ; ea 08/22 21:38 Body Mass Index 24.37 (64.41 kg, 162.56 cm) ea ED Course: 08/22 21:25 Patient arrived in ED. am2 21:30 Radha Jha, LLOYD is Primary Nurse. ls4 21:30 Mook Oneil PA is PHCP. cp 21:30 Arvind Zavala MD is Attending Physician. cp 21:36 Triage completed. ea 21:38 Arm band placed on right wrist. Patient placed in an exam room, on a stretcher, on ea vehicle monitor technician, on pulse oximetry. 21:45 Patient has correct armband on for positive identification. Bed in low position. Call ls4 light in reach. Side rails up X 1. quality assurance monitor final on. Pulse ox on. NIBP on. Warm blanket given. 21:45 No provider procedures requiring assistance completed. Inserted saline lock: 20 gauge ls4 in left antecubital area, using aseptic technique. Patient maintains SpO2 saturation greater than 95% on room air. 21:57 LFT's Sent. ls4 21:57 Magnesium Sent. ls4 21:57 NT PRO-BNP Sent. ls4 21:57 PT-INR Sent. ls4 21:57 Troponin (emerg Dept Use Only) Sent. ls4 21:57 XRAY Chest (1 view) Sent. ls4 22:[address] nj 22:15 Basic Metabolic Panel Sent. ls4 22:16 CBC with Diff Sent. ls4 22:20 CT completed. Patient tolerated procedure well. Patient moved back from [facility] 08/23 00:05 Katya Figueredo MD is Hospitalizing Provider. cp 01:07 Patient admitted, IV remains in place. ea Administered Medications: 08/22 23:46 Drug: NS 0.9% 500 ml Route: IV; Rate: bolus; Site: left antecubital; ea 08/23 00:59 Follow up: Response: No adverse reaction; IV Status: Completed infusion; IV Intake: ea 500ml Intake: 00:59 IV: 500ml; Total: 500ml. ea Outcome: 00:06 Decision to Hospitalize by Provider. cp 00:52 Instructed on the need for admit. ea 01:15 Admitted to Med/surg accompanied by tech, room 409, Report called to Receiving nurse ea on fourth 01:15 Condition: stable 01:19 Patient left the ED. ea Signatures: Mook Oneil PA PA cp Jordan, Nathan nj Moreno, Amanda am2 McGuire, Victoria [facility] Christal Goldstein RN RN Radha Pelaez RN RN ls4
--- NOTE | 2018-08-23 00:10 | EDPHYS ---
Physician Documentation [facility] Name: Zuly Hill Age: 67 yrs Sex: Female : 1950 Arrival Date: 08/22/2018 Time: 21:25 Bed 16 Private MD: ED Physician Arvind Zavala HPI: 08/22 21:41 This 67 yrs old Female presents to ER via Wheelchair with complaints of Chest cp Pain. 21:41 The patient or guardian reports chest pain that is located primarily in the anterior cp chest wall. 21:41 Onset: this morning. cp 21:41 The pain radiates to the left shoulder. cp 21:41 The chest pain is described as aching, dull. cp 21:41 Duration: The patient or guardian reports multiple episodes, that wax and wane. cp Severity of pain: in the emergency department the pain has resolved and did so just prior to arrival. 21:41 reports patient began having episode of chest pain while seated in chair about cp an hour ago. Patient then passed out for over 1 minute. Historical: - Allergies: 21:38 No Known Allergies; ea - Home Meds: 21:38 Plavix Oral [Active]; Metoprolol Tartrate Oral [Active]; atorvastatin Oral [Active]; ea Aspirin Oral [Active]; - PMHx: 21:38 Myocardial infarction; ea - PSHx: 21:38 Heart stents; ea - Immunization history:: Adult Immunizations up to date. - Social history:: Smoking status: Patient/guardian denies using tobacco. - Ebola Screening: : No symptoms or risks identified at this time. ROS: 21:45 Constitutional: Negative for body aches, chills, fever, poor PO intake. cp 21:45 Eyes: Negative for injury, pain, redness, and discharge. cp 21:45 ENT: Negative for drainage from ear(s), ear pain, sore throat, difficulty swallowing, difficulty handling secretions. 21:45 Neck: Negative for stiffness. 21:45 Cardiovascular: Positive for chest pain, Negative for edema, palpitations. 21:45 Respiratory: Negative for cough, shortness of breath, wheezing. 21:45 Abdomen/GI: Negative for abdominal pain, nausea, vomiting, and diarrhea. 21:45 Skin: Negative for cellulitis, rash. 21:45 Neuro: Positive for syncope, general weakness, Negative for altered mental status, headache. 21:45 All other systems are negative. Exam: 21:51 Constitutional: The patient appears in no acute distress, alert, awake, cp non-diaphoretic, non-toxic, well developed, well nourished. 21:51 Head/Face: Normocephalic, atraumatic. Eyes: Pupils equal round and reactive to light, cp extra-ocular motions intact. Lids and lashes normal. Conjunctiva and sclera are non-icteric and not injected. Cornea within normal limits. Periorbital areas with no swelling, redness, or edema. ENT: Nares patent. No nasal discharge, no septal abnormalities noted. Tympanic membranes are normal and external auditory canals are clear. Oropharynx with no redness, swelling, or masses, exudates, or evidence of obstruction, uvula midline. Mucous membranes moist. Neck: Trachea midline, no thyromegaly or masses palpated, and no cervical lymphadenopathy. Supple, full range of motion without nuchal rigidity, or vertebral point tenderness. No Meningismus. Chest/axilla: Normal chest wall appearance and motion. Nontender with no deformity. No lesions are appreciated. 21:51 Cardiovascular: Rate: normal, Rhythm: regular, Pulses: Pulses are 2+ in right radial artery and left radial artery. Heart sounds: murmur, not appreciated, Edema: is not appreciated, JVD: is not appreciated. 21:51 Respiratory: the patient does not display signs of respiratory distress, Respirations: normal, no use of accessory muscles, no retractions, no splinting, no tachypnea, labored breathing, is not present, Breath sounds: are clear throughout, no decreased breath sounds, no stridor, no wheezing. 21:51 Abdomen/GI: Inspection: abdomen appears normal, Palpation: abdomen is soft and non-tender, in all quadrants, voluntary guarding, is not appreciated, involuntary guarding, is not appreciated. 21:51 Back: pain, is absent, ROM is normal. 21:51 Skin: cellulitis, is not appreciated, no rash present. 21:51 Neuro: Orientation: to person, place \T\ time. Mentation: is normal, Cerebellar function: is grossly normal, Motor: moves all fours, strength is normal, Sensation: is normal. 21:53 ECG was reviewed by the Attending Physician. cp Vital Signs: 21:38 BP 157 / 69; Pulse 75; Resp 18; Temp 97.6(O); Pulse Ox 95% on R/A; Weight 64.41 kg; ea Height 5 ft. 4 in. (162.56 cm); 23:40 BP 100 / 53; Pulse 68; Resp 18; Pulse Ox 98% ; ea 08/23 00:30 BP 119 / 62; Pulse 72; Resp 18; Pulse Ox 97% ; ea 08/22 21:38 Body Mass Index 24.37 (64.41 kg, 162.56 cm) ea MDM: 08/22 21:30 Patient medically screened. cp 22:00 Differential diagnosis: abnormal EKG, acute myocardial infarction, pneumonia, cp pneumothorax, pulmonary embolus, stable angina, thoracic aortic disection, unstable angina. 08/23 00:05 The patient was not given aspirin in the Emergency Department. Patient reports taking cp aspirin within the past 24 hours. 00:05 Data reviewed: vital signs, nurses notes, lab test result(s), EKG, radiologic studies. cp Test interpretation: by ED physician or midlevel provider: ECG, plain radiologic studies. Physician consultation: Katya Figueredo MD was contacted at 23:50, regarding admission, to the telemetry unit. patient's condition. 02 21:42 Order name: Basic Metabolic Panel cp 08/22 21:42 Order name: CBC with Diff cp 02 21:42 Order name: LFT's cp 08/22 21:42 Order name: Magnesium cp 02 21:42 Order name: NT PRO-BNP cp 08/22 21:42 Order name: PT-INR cp 08/22 21:42 Order name: Troponin (emerg Dept Use Only) cp 08/22 22:03 Order name: CBC with Automated Diff; Complete Time: 22:49 EDMS 02 22:50 Interpretation: Normal except: RBC 3.85; HCT 35.6; PLT 150; EOSINOPHIL % 5.5. cp 08/22 22:06 Order name: Protime (+INR); Complete Time: 22:49 EDMS 08/22 22:22 Order name: Basic Metabolic Panel; Complete Time: 22:49 EDMS 08/22 22:50 Interpretation: Normal except: GLUC 109; BUN 21; CRE 1.41; GFR 37. cp 08/22 22:22 Order name: Liver (Hepatic) Function; Complete Time: 22:49 EDMS 08/22 22:50 Interpretation: Normal except: AST 100; ALT 90. cp 08/22 22:22 Order name: Troponin (Emerg Dept Use Only); Complete Time: 22:49 EDMS 08/22 22:50 Interpretation: TROPED < 0.02; Reviewed. cp 08/22 22:22 Order name: NT PRO-BNP; Complete Time: 22:49 EDMS 08/22 23:00 Interpretation: Abnormal: NT PRO-BNP 386. cp 08/22 22:22 Order name: Magnesium; Complete Time: 22:49 EDMS 08/22 21:42 Order name: XRAY Chest (1 view) cp 08/22 21:42 Order name: EKG; Complete Time: 21:43 cp 08/22 21:42 Order name: Cardiac monitoring; Complete Time: 21:46 cp 08/22 21:42 Order name: EKG - Nurse/Tech; Complete Time: 21:46 cp 08/22 21:42 Order name: IV Saline Lock; Complete Time: 21:46 cp 08/22 21:42 Order name: Labs collected and sent; Complete Time: 21:46 cp 08/22 21:42 Order name: O2 Per Protocol; Complete Time: 21:47 cp 08/22 21:42 Order name: O2 Sat Monitoring; Complete Time: 21:47 cp 08/22 21:55 Order name: CT Head Brain wo Cont cp EC/21 21:53 Rate is 73 beats/min. Rhythm is regular. MD interval is normal. QRS interval is normal. cp QT interval is normal. T waves are Inverted in leads V2, V3. Interpreted by me. Reviewed by me. Administered Medications: 23:46 Drug: NS 0.9% 500 ml Route: IV; Rate: bolus; Site: left antecubital; ea 08/23 00:59 Follow up: Response: No adverse reaction; IV Status: Completed infusion; IV Intake: ea 500ml Disposition: 20:40 Co-signature as Attending Physician, Arvind Zavala MD. Disposition: 08/23/18 00:06 Hospitalization ordered by Katya Figueredo for Observation. Preliminary diagnosis are Syncope and collapse, Chest pain, unspecified. - Bed requested for Telemetry/MedSurg (observation). - Status is Observation. ea - Condition is Stable. - Problem is new. - Symptoms have improved. UTI on Admission? No Signatures: Dispatcher [employer] EDMS Leydi Seth RN RN kl Page, Corey, PA PA cp Antunez, Elena, RN RN ea Starr, Gregory, MD MD gs Corrections: (The following items were deleted from the chart) 00:41 00:06 Hospitalization Ordered by Katya Figueredo MD for Observation. Preliminary kl diagnosis is Syncope and collapse; Chest pain, unspecified. Bed requested for Telemetry/MedSurg (observation). Status is Observation. Condition is Stable. Problem is new. Symptoms have improved. UTI on Admission? No. cp 01:19 00:41 08/23/2018 00:06 Hospitalization Ordered by Katya Figueredo MD for Observation. lupillo Preliminary diagnosis is Syncope and collapse; Chest pain, unspecified. Bed requested for Telemetry/MedSurg (observation). Status is Observation. Condition is Stable. Problem is new. Symptoms have improved. UTI on Admission? No. afua
--- NOTE | 2018-08-23 00:47 | P.HP ---
Certification for Inpatient Patient admitted to: Observation With expected LOS: <2 Midnights Practitioner: I am a practitioner with admitting privileges, knowledge of patient current condition, hospital course, and medical plan of care. Services: Services provided to patient in accordance with Admission requirements found in Title 42 Section 412.3 of the Code of Federal Regulations Patient History Date of Service: 08/23/18 Reason for admission: syncope, chest pain History of Present Illness: Ms Hill is a 67 years old woman with history of CAD, about 1 month ago had an acute PA, she was transferred to [facility] and had a stent placement. After the procedure, the patient has had recurrent episodes of chest pain. She had a second cath in [facility] and was told that everything was ok. Today, the patient has had some left arm pain. Subsequently, she was watching TV and suddenly start feeling nauseated, dizziness and then she become unresponsive. Her was witness. The syncopal episode last for about 1 minute. The patient denied palpitations prior the syncope. The patient has history of previous vaso-vagal episodes. Lab work shows normal trop I. EKG without ST-T abnormalities. CT head no acute abnormalities. Home medications list reviewed: Yes - Past Medical/Surgical History -: CAD -: Vaso-vagal episodes -: stent placement - Family History Family History: Reviewed- Non-Contributory - Social History Smoking Status: Never smoker Alcohol use: Yes CD- Drugs: No Caffeine use: Yes Place of Residence: Home Review of Systems 10-point ROS is otherwise unremarkable Physical Examination - Physical Exam General: Alert, In no apparent distress HEENT: Atraumatic, PERRLA, Mucous membr. moist/pink, EOMI, Sclerae nonicteric Neck: Supple, 2+ carotid pulse no bruit, No LAD, Without JVD or thyroid abnormality Respiratory: Clear to auscultation bilaterally, Normal air movement Cardiovascular: Regular rate/rhythm, Normal S1 S2 Gastrointestinal: Normal bowel sounds, No tenderness Musculoskeletal: No tenderness Integumentary: No rashes Neurological: Normal gait, Normal speech, Normal strength at 5/5 x4 extr, Normal tone, Normal affect Lymphatics: No axilla or inguinal lymphadenopathy - Studies Laboratory Data (last 24 hrs) 08/22/18 21:45: PT 12.1, INR 1.03 08/22/18 21:45: WBC 4.5, Hgb 12.0, Hct 35.6 L, Plt Count 150 L 08/22/18 21:45: Sodium 142, Potassium 4.0, BUN 21 H, Creatinine 1.41 H, Glucose 109 H, Magnesium 2.1, Total Bilirubin 0.3, AST 100 H, ALT 90 H, Alkaline Phosphatase 104 Assessment and Plan - Problems (Diagnosis) (1) Syncope Current Visit: Yes Status: Acute Qualifiers: Syncope type: unspecified Qualified Code(s): R55 - Syncope and collapse (2) CAD (coronary artery disease) Current Visit: Yes Status: Acute Qualifiers: Coronary Disease-Associated Artery/Lesion type: [place] artery [place] vs. transplanted heart: [place] heart Associated angina: angina presence unspecified Qualified Code(s): I25.10 - Atherosclerotic heart disease of [place] coronary artery without angina pectoris (3) Left arm pain Current Visit: Yes Status: Acute - Plan The patient will be admitted to the hospital due to syncopal episode. Differential diagnosis include malignant arrhythmia, vaso-vagal episode. Will keep the patient on telemetry, order serial cardiac enzymes, ECHO and cardiology consult. - Advance Directives Does patient have a Living Will: No Does patient have a Durable POA for Healthcare: No - Code Status/Comfort Care Code Status Assessed: Yes Code Status: Full Code
[2018-08-23] MEDS ORDERED: ONDANSETRON 4 MG/2 ML VIAL IV PRN (02:01)
[2018-08-23] MEDS ORDERED: CLOPIDOGREL 75 MG TABLET PO ONE (02:01)
--- NOTE | 2018-08-23 07:06 | EKG ---
Test Date: 2018-08-22 Test Time: 21:37:58 Cna: [id number] MEASUREMENT RESULTS: Intervals: Rate: 73 UT: 138 QRSD: 76 QT: 368 QTc: 405 [place]: P: 80 UT: 138 QRS: 75 T: 74 INTERPRETIVE STATEMENTS: Normal sinus rhythm Nonspecific T wave abnormality Abnormal ECG Compared to ECG 07/28/2018 02:59:13 Possible ischemia no longer present T-wave abnormality still present Electronically Signed On 08-23-18 07:05:57 STEM LEAD FORMER by Braden Wen
--- NOTE | 2018-08-23 07:44 | RAD REPORT ---
EXAM DESCRIPTION: RAD - Chest Single View - 08/22/2018 10:20 pm CLINICAL HISTORY: Syncope, chest pain COMPARISON: July 28 TECHNIQUE: AP portable chest image was obtained 2214 hour . FINDINGS: Interstitial fibrotic pattern is present, worse in each medial lung base. Pattern is not c learly different from comparison. No peripheral mass or consolidation. Failure and volume overload no t suspected. Heart and vasculature are normal. No measurable pleural effusion and no pneumothorax. No acute bony abnormality seen. No acute aortic findings suspected. IMPRESSION: No acute cardiopulmonary process. Chest findings are similar to July 28.
[2018-08-23] MEDS ORDERED: PNEUMOCOCCAL VACCINE 0.5 ML IMVAC ONE (08:00)
[2018-08-23] MEDS ORDERED: TRAZODONE 50 MG TABLET PO PRN (08:46)
[2018-08-23] MEDS ORDERED: NA CHLORIDE 0.9% 250 ML IV ONE (08:53)
[2018-08-23] MEDS ORDERED: FLUTICASONE 50MCG NASAL SPRAY NAS SCH (09:00)
[2018-08-23] MEDS ORDERED: CLOPIDOGREL 75 MG TABLET PO SCH (09:00)
[2018-08-23] MEDS ORDERED: METOPROLOL XL 25 MG TAB PO SCH ×2 (09:00)
[2018-08-23] MEDS ORDERED: ENOXAPARIN 40 MG/0.4 ML SQ SCH (09:00)
[2018-08-23] MEDS ORDERED: ESTROGENS,CONJUGAG 0.3 MG TAB PO SCH (09:00)
[2018-08-23] MEDS ORDERED: ISOSORBIDE MONO SR 30 MG TAB PO SCH (09:00)
[2018-08-23] MEDS ORDERED: ASPIRIN 81 MG CHEWABLE TABLET PO SCH (09:00)
[2018-08-23] MEDS ORDERED: ESCITALOPRAM 20 MG TAB PO SCH (09:00)
[2018-08-23] MEDS ORDERED: AZELASTINE NASAL SPRAY 30 ML NAS SCH (09:00)
--- NOTE | 2018-08-23 09:54 | RAD REPORT ---
EXAM DESCRIPTION: US - Liver Only - 08/23/2018 9:23 am CLINICAL HISTORY: Abnormal liver function COMPARISON: None. TECHNIQUE: Sonographic evaluation of the right upper quadrant was performed as a dedicated liver ult rasound study. FINDINGS: Liver is 16 cm in maximum dimension. No focal liver lesion or capsular nodularity. Liver s hows a mild increase in parenchymal echogenicity. This is nonspecific. Minimal fatty infiltration or mild hepatic parenchymal disease would be possible. No ascites. Doppler evaluation shows normal veloc ity and flow direction for the portal vein. No portal vein thrombus. Spleen is 9 cm with no focal abnormality. Common bile duct is 2 mm. Incidental note is made of gallbl adder polyps up to 7 mm in size. These can be monitored on a followup study in 6 months. IMPRESSION: Normal size liver showing no focal liver lesion. Slight increase in echogenicity of the liver parenchyma is nonspecific but could be a mild fatty infi ltration or a minimal hepatic parenchymal disease. Gallbladder polyps up to 7 mm in size. These can be monitored with a follow-up gallbladder ultrasound in 6 months.
--- NOTE | 2018-08-23 09:55 | RAD REPORT ---
EXAM DESCRIPTION: US - Renal Ultrasound-Complete - 08/23/2018 9:34 am CLINICAL HISTORY: Acute kidney injury COMPARISON: None. FINDINGS: The right kidney measures 8.9 x 3.9 x 4.7 cm. The left kidney measures 9.6 x 4.7 x 5.4 cm . Renal cortical thickness and echogenicity are normal. No hydronephrosis or suspicious renal mass. No bladder wall thickening or mass. No intraluminal stone or mass. IMPRESSION: No hydronephrosis or suspicious renal mass. No other significant findings.
[2018-08-23] MEDS ORDERED: PROGESTERONE,MICRONIZED 100 MG CAP PO SCH (10:00)
--- NOTE | 2018-08-23 10:02 | RAD REPORT ---
EXAM DESCRIPTION: US - CP - 08/23/2018 9:34 am CLINICAL HISTORY: Syncope COMPARISON: None. TECHNIQUE: Real-time sonographic evaluation of both carotid systems was performed. Maxwell scale and Do ppler interrogation were performed with waveform tracing bilaterally. FINDINGS: Normal high resistance waveforms are noted in both external carotid arteries. The common c arotid arteries and internal carotid arteries show normal low resistance waveforms. Small focus calcified plaquing seen in the proximal left internal carotid artery. No significant susan nal narrowing. Otherwise, no significant plaquing changes are identified. Peak systolic and end diast olic velocity values and the ICA/CCA ratios are in the non-hemodynamically significant range. Antegrade flow seen in both vertebral arteries. Velocity values and ratios were recorded and are retained in the patient's imaging records. IMPRESSION: Small calcified plaque proximal left internal carotid artery. No evidence of a hemodynamically significant stenosis.
[2018-08-23 11:07] LABS: Thyroid Stimulating Hormone 0.828 uIU/mL (0.360-3.740)
--- NOTE | 2018-08-23 12:39 | CON ---
A 67-year-old woman. Chief Complaint: Loss of consciousness. History Of Present Illness: Mrs. Hill was in a stable health until mid July when she was [facility] in [place], had chest pain, went to hospital and underwent an LAD stent. She was discharged home a few days later and had chest pain and saw her replacer in [place], Dr. Darnell Howard. A car diac cath was done. Everything seemed to be fine and they entertained the possibility that she was h aving intermittent spasm. She continues to have intermittent chest pains. She has been given Plavix , Lipitor, aspirin, trazodone, isosorbide mononitrate 15 mg a day, Lexapro, Prometrium, nitroglycerin as needed, conjugated estrogens, fluticasone nasal spray, Azelastine, albuterol, and metoprolol. Theodore reed is a nonsmoker. Does not have diabetes. Had a recent [facility] and now has had syncope. The syncope occ urred while she was watching TV. Apparently, she was unconscious for 3 minutes. The was not able to say whether she had a pulse or not. When she woke up, her neighbor who happens to be an [facility] room physician took her vital signs and they seemed to be good. She has been in our hospital on telemetry overnight. Her laboratory exams indicate there was no blood loss. Her creatinine is 1. 41. Liver function tests are slightly elevated, troponins are normal, blood sugar slightly elevated at 109, and her telemetry has not shown anything abnormal. Her electrocardiogram shows sinus rhythm, nonspecific T-wave flattening. No infarction, injury, or ischemia. Impression: The patient seems to have a heart rhythm problem. I would recommend an electrophysiolog y evaluation. We will talk to Dr. Howard and see how he wants to handle it. Presently, he is consi dering doing this fully as an outpatient. I think it is good to ask him if he does not think she might be transferred and evaluated by an EP person today. THEODORE/IVAN Voice ID: [id number] Report ID: [id number]
[2018-08-23 13:50] LABS: Potassium 4.4 mmol/L (3.5-5.1)
--- NOTE | 2018-08-23 14:36 | P.DS ---
Admission Date: 08/23/18 Discharge Date: 08/23/18 Primary Care Provider: Dr. Jo([place]); Cardiology-Dr. Cruz Disposition: ROUTINE DISCHARGE Discharge Condition: GOOD Reason for Admission: syncope, chest pain Consultations: Cardiology-Dr. Wen Procedures: CT head: No acute abnormality noted CXR: COMPARISON: July 28 TECHNIQUE: AP portable chest image was obtained 2214 hour . FINDINGS: Interstitial fibrotic pattern is present, worse in each medial lung base. Pattern is not clearly different from comparison. No peripheral mass or consolidation. Failure and volume overload not suspected. Heart and vasculature are normal. No measurable pleural effusion and no pneumothorax. No acute bony abnormality seen. No acute aortic findings suspected. IMPRESSION: No acute cardiopulmonary process. Chest findings are similar to July 28. Renal US: COMPARISON: None. FINDINGS: The right kidney measures 8.9 x 3.9 x 4.7 cm. The left kidney measures 9.6 x 4.7 x 5.4 cm. Renal cortical thickness and echogenicity are normal. No hydronephrosis or suspicious renal mass. No bladder wall thickening or mass. No intraluminal stone or mass. IMPRESSION: No hydronephrosis or suspicious renal mass. No other significant findings. Liver US: COMPARISON: None. TECHNIQUE: Sonographic evaluation of the right upper quadrant was performed as a dedicated liver ultrasound study. FINDINGS: Liver is 16 cm in maximum dimension. No focal liver lesion or capsular nodularity. Liver shows a mild increase in parenchymal echogenicity. This is nonspecific. Minimal fatty infiltration or mild hepatic parenchymal disease would be possible. No ascites. Doppler evaluation shows normal velocity and flow direction for the portal vein. No portal vein thrombus. Spleen is 9 cm with no focal abnormality. Common bile duct is 2 mm. Incidental note is made of gallbladder polyps up to 7 mm in size. These can be monitored on a followup study in 6 months. IMPRESSION: Normal size liver showing no focal liver lesion. Slight increase in echogenicity of the liver parenchyma is nonspecific but could be a mild fatty infiltration or a minimal hepatic parenchymal disease. Gallbladder polyps up to 7 mm in size. These can be monitored with a follow-up gallbladder ultrasound in 6 months. Carotid Doppler: COMPARISON: None. TECHNIQUE: Real-time sonographic evaluation of both carotid systems was performed. Maxwell scale and Doppler interrogation were performed with waveform tracing bilaterally. FINDINGS: Normal high resistance waveforms are noted in both external carotid arteries. The common carotid arteries and internal carotid arteries show normal low resistance waveforms. Small focus calcified plaquing seen in the proximal left internal carotid artery. No significant luminal narrowing. Otherwise, no significant plaquing changes are identified. Peak systolic and end diastolic velocity values and the ICA/CCA ratios are in the non-hemodynamically significant range. Antegrade flow seen in both vertebral arteries. Velocity values and ratios were recorded and are retained in the patient's imaging records. IMPRESSION: Small calcified plaque proximal left internal carotid artery. No evidence of a hemodynamically significant stenosis. Medical Problem List: Brief History of Present Illness: 67-year-old female presented to the emergency room with a syncopal episode. This started with left arm pain. Upon watching TV she started feel nauseated, dizzy and she became unresponsive. witnessed this episode. Syncopal episode lasted about 1 min. Patient denied any palpitations prior to syncope. Patient with history of vasovagal episode. Patient with recent history of CAD and CA 1 month ago. She had a stent placed at that time in [facility]. Then a week after that episode she was transferred to [facility] for recheck heart catheterization due to chest pain. This was unremarkable. Patient was evaluated in the emergency room. She was admitted for further evaluation. Hospital Course: Patient presented with syncopal episode. This had resolved prior to admission. Patient with recent and RI and stent placement in [facility]. She subsequent had repeat heart catheterization due to chest pain in [place]. Patient was admitted for further evaluation. Patient seen and evaluated by Cardiology. Cardiac enzymes unremarkable. Blood pressure stable. Telemetry showed no acute abnormality. Case discussed at length with cardiology. Cardiology recommends follow up with her radio program director and for further evaluation with possible EP study. I did reach out her radio program director who agrees with current plan of care. Appointment has been made for early next week to follow up with her radio program director. At discharge patient will continue with aspirin 325 mg daily, Plavix 75 mg daily, and Imdur 15 mg daily. Patient had acute renal injury likely from dehydration. This may be a reason for her syncopal episode. Patient was given IV fluids. Renal function improved with hydration. Renal ultrasound unremarkable. Patient encouraged to take good oral intake. Patient with hypertension. Patient will continue with metoprolol XL 12.5 mg once daily. Recommend to hold blood pressure medication if systolic less than 110. This can be further adjusted by her radio program director. Patient with hyperlipidemia. She will continue with her medication-lipitor 40 mg daily. Patient found to have elevated liver function tests. Hepatitis panel sent for analysis. Liver ultrasound showed gallbladder polyp and fatty liver. Recommend to follow up with GI as an outpatient to further evaluate her fatty liver. Recommend to follow up with surgery as an outpatient to further evaluate the gallbladder polyp. Vital Signs/Physical Exam: Temp Pulse Resp BP Pulse Ox 98.3 F 54 18 111/57 L 97 08/23/18 12:00 08/23/18 12:00 08/23/18 12:00 08/23/18 12:00 08/23/18 12:00 General: Alert, In no apparent distress, Oriented x3, Cooperative HEENT: Atraumatic, Mucous membr. moist/pink Neck: Supple, No Thyromegaly Respiratory: Clear to auscultation bilaterally, Normal air movement Cardiovascular: Normal pulses, Regular rate/rhythm Gastrointestinal: Normal bowel sounds, Soft and benign, Non-distended, No ascites, No tenderness, No masses, No rebound, No guarding Musculoskeletal: No erythema, No tenderness, No warmth Integumentary: No tenderness/swelling, No erythema, No warmth, No cyanosis Neurological: Normal speech, Normal strength at 5/5 x4 extr, Normal tone, Normal affect Laboratory Data at Discharge: WBC 4.5 K/uL (4.3-10.9) 08/22/18 21:45 Hgb 12.0 g/dL (12.0-15.0) 08/22/18 21:45 Hct 35.6 % (36.0-45.0) L 08/22/18 21:45 Plt Count 150 K/uL (152-406) L 08/22/18 21:45 PT 12.1 SECONDS (9.5-12.5) 08/22/18 21:45 INR 1.03 08/22/18 21:45 Sodium 142 mmol/L (136-145) 08/23/18 13:06 Potassium 4.4 mmol/L (3.5-5.1) 08/23/18 13:06 BUN 16 mg/dL (7-18) 08/23/18 13:06 Creatinine 0.98 mg/dL (0.55-1.3) 08/23/18 13:06 Glucose 126 mg/dL (74-106) H 08/23/18 13:06 Magnesium 2.1 mg/dL (1.8-2.4) 08/22/18 21:45 Total Bilirubin 0.3 mg/dL (0.2-1.0) 08/22/18 21:45 AST 100 U/L (15-37) H 08/22/18 21:45 ALT 90 U/L (12-78) H 08/22/18 21:45 Alkaline Phosphatase 104 U/L (45-117) 08/22/18 21:45 Troponin I 0.02 ng/mL (0.0-0.045) 08/23/18 10:17 Home Medications: Albuterol Sulfate [Ventolin Hfa] 2 puff IH QID PRN 08/23/18 Aspirin 325 mg PO DAILY 08/23/18 Atorvastatin Calcium [Lipitor] 40 mg PO BEDTIME 08/23/18 Azelastine [Astelin 137MCG/Metered [place]*] 1 spray NABIL BID 08/23/18 Clopidogrel Bisulfate [Plavix*] 75 mg PO DAILY 08/23/18 Escitalopram Oxalate [Lexapro] 20 mg PO DAILY 08/23/18 Estrogens,Conj [Premarin*] 1 tab PO QOD QID 08/23/18 Fluticasone [Flonase 50MCG Nasal [place]*] 1 sprays NABIL BID 08/23/18 Isosorbide Mononitrate [Isosorbide Mononitrate ER] 0.5 tab PO DAILY 08/23/18 Metoprolol Succinate [Toprol Xl*] 0.5 tab PO DAILY 08/23/18 Nitroglycerin [Nitrostat*] 0.4 mg SL [id number] PRN 08/23/18 Progesterone,Micronized [Prometrium] 100 mg PO SEECOM 08/23/18 Trazodone HCl 50 mg PO BEDTIME 08/23/18 Patient Discharge Instructions: 1. Follow up with her PCP in one week to follow up this hospitalization. 2. Patient presented with syncopal episode. This had resolved prior to admission. Patient with recent and RI and stent placement in [facility]. She subsequent had repeat heart catheterization due to chest pain in [place]. Patient was admitted for further evaluation. Patient seen and evaluated by Cardiology. Cardiac enzymes unremarkable. Blood pressure stable. Telemetry showed no acute abnormality. Case discussed at length with cardiology. Cardiology recommends follow up with her radio program director and for further evaluation with possible EP study. I did reach out her radio program director who agrees with current plan of care. Appointment has been made for early next week to follow up with her radio program director. At discharge patient will continue with aspirin 325 mg daily, Plavix 75 mg daily, and Imdur 15 mg daily. 3. Patient had acute renal injury likely from dehydration. This may be a reason for her syncopal episode. Patient was given IV fluids. Renal function improved with hydration. Renal ultrasound unremarkable. Patient encouraged to take good oral intake. 4. Patient with hypertension. Patient will continue with metoprolol XL 12.5 mg once daily. Recommend to hold blood pressure medication if systolic less than 110. This can be further adjusted by her radio program director. 5. Patient with hyperlipidemia. She will continue with her medication-lipitor 40 mg daily. 6. Patient found to have elevated liver function tests. Hepatitis panel sent for analysis. Liver ultrasound showed gallbladder polyp and fatty liver. Recommend to follow up with GI as an outpatient to further evaluate her fatty liver. Recommend to follow up with surgery as an outpatient to further evaluate the gallbladder polyp. Diet: AHA Activity: Fall precautions Time spent managing pt's care (in minutes): 55
--- NOTE | 2018-08-23 20:11 | RAD REPORT ---
EXAM DESCRIPTION: CT - Head Brain Wo Cont - 08/23/2018 5:37 am CLINICAL HISTORY: The patient is 67 years old and is Femal; SYNCOPE COMPARISON: No relevant prior studies available. TECHNIQUE: Axial computed tomography images of the head/brain without intravenous contrast. Sagittal and collier l reformatted images were created and reviewed. This CT exam was performed using one or more of the f ollowing dose reduction techniques: Automated exposure control, adjustment of the mA and/or kV accord ing to patient size, and/or use of iterative reconstruction technique. FINDINGS: BRAIN: There is a dystrophic calcification in the right cerebellar hemisphere. It is of do ubtful clinical significance. There are mild areas of hypodensity in the periventricular white matter , which are felt to represent the sequela of small vessel ischemic disease (microangiopathy) Early infarcts within the first 12 hours may not be visible on non contrast CT. The arellano/white matte r differentiation is intact. No intra or extra axial fluid collections are seen. There is senescent m ineralization of the basil ganglia. No hemorrhage MIDLINE SHIFT: There is no midline shift. VENTRICLES: There is slight global atrophy with prominence of the ventricles, sulci and basilar ciste rns. BONES/JOINTS: Unremarkable. No acute fracture. SOFT TISSUES: The soft tissues of the scalp are unremarkable. VASCULATURE: Intracranial vascular calcifications are noted. SINUSES: There is opacification of the middle and anterior ethmoid air cells bilaterally. There is mi ld bilateral frontal sinus opacification at the level of the frontal ethmoidal recesses. MASTOID AIR CELLS: Unremarkable as visualized. No mastoid effusion. IMPRESSION: No acute intracranial abnormality is identified. Electronically signed by Dc Ruvalcaba MD 08/22/2018 11:48 AM BUSINESS SERVICES TECH Due to temporary technical issues with the PACS/Fluency reporting system, reports are being signed by the in house radiologist as a courtesy to ensure prompt reporting. The interpreting radiologist is f delroyly responsible for the content of the report.
[2018-08-23] MEDS ORDERED: ATORVASTATIN 40 MG TAB PO SCH (21:00)
[2018-08-27 06:55] LABS: HBsAG Nonreactive (Nonreactive); Hepatitis A IgM Antibody Nonreactive
== END 2018-08-23 15:38 | disposition home or self-care (01) ==
LOC: ER 21:24 → ERHOLD 08-23 00:31 → 4TH 08-23 01:12
PROVIDERS: ADMIT Internal Medicine; ATTEND Internal Medicine
DX: R55 Syncope and collapse (principal); N17.9 Acute kidney failure, unspecified; R79.89 Other specified abnormal findings of blood chemistry; I10 Essential (primary) hypertension; I25.10 Atherosclerotic heart disease of native coronary artery without angina pectoris; E78.5 Hyperlipidemia, unspecified; Z95.5 Presence of coronary angioplasty implant and graft; I25.2 Old myocardial infarction
CPT/HCPCS: 36415; 70450; 71045; 76705; 76770; 80048 ×2; 80074; 80076; 82607; 83735; 83880; 84439; 84443; 84484 ×3; 85025; 85610; 93005; 93880; 96360; 99285; G0378 ×2; J1650